=== PATIENT | male | born 1955 | race Caucasian/White ===

== ENCOUNTER 2023-05-19 05:57 | Day surgery (SDC) | payer OTHER, SELFPAY ==
[2023-05-19] VITALS (11 sets, daily range): BP systolic 144–195; BP diastolic 75–94; BMI 37.7
[2023-05-19] MEDS: BACTROBAN NASAL 1 GRAM NASAL (06:50)
[2023-05-19] MEDS: NSS 500 IV (06:50)
[2023-05-19] MEDS: PERIDEX 0.12% ORAL RINSE 15 ML PO (06:50)
[2023-05-19 07:02] LABS: Hematocrit 23.6 % (39.0-52.0); Hemoglobin 7.8 g/dL (13.0-18.0); Mean Corp Hgb Conc. 33.1 g/dL (33.0-37.0); Mean Corpuscular Volume 84.6 fL (80.0-94.0); Mean Platelet Volume 10.7 fL (7.4-10.4); Platelet Count 142 10^3/uL (130-400); Red Blood Cell Count 2.79 10^6/uL (4.70-6.10); Red Cell Dist. Width 14.7 % (11.5-14.5); White Blood Cell Count 6.7 10^3/uL (4.8-10.8)
[2023-05-19 07:12] LABS: APTT 27.4 Sec (23.4-35.0); INR 1.04; PT 13.8 Sec (11.4-14.6)
--- NOTE | 2023-05-19 07:13 | W.SUR.PREOP ---
Pre-Operative Surgical Note
-
I have examined this patient prior to the performance of the scheduled procedure.
The patient's condition is unchanged from the time of the current History and
Physical and the patient is able to undergo the scheduled procedure.
Note hemoglobin is 7.8. Reviewed with patient - he notes chronic anemia.
[2023-05-19 07:29] LABS: Blood Urea Nitrogen 79 mg/dl (9-20); Calcium 9.9 mg/dl (8.4-10.2); Carbon Dioxide 27 mmol/L (22-30); Chloride 94 mmol/L (98-107); Estimated Creatinine Clearance 18 ml/min; Glucose 110 mg/dl (70-99); Potassium 4.1 mmol/L (3.5-5.1); Sodium 132 mmol/L (135-145); eGFR 11.08
--- NOTE | 2023-05-19 08:54 | OR.RPT ---
Operative Report
Operative Report
PROCEDURE DATE: 05/19/2023
Preoperative diagnosis: End-stage renal disease, approaching hemodialysis
Postoperative diagnosis: Same
Procedure: Left upper extremity brachiocephalic arteriovenous fistula creation
Surgeon: Conner
Hvac Services Professional: Andrew Rajan PA-C, required for all portions of the procedure.
Complications: None
Anesthesia: General
Indications for procedure:
Chronic kidney disease worsening, approaching hemodialysis. Asked to evaluate for AV fistula creation. Risk/benefits/alternatives of arteriovenous fistula creation discussed with patient. He understood all wish to proceed.
Description of procedure:
Patient was identified brought to the operating room placed on the table in supine position. After the induction of anesthesia, I ultrasound mapped the cephalic vein in the left upper arm myself. It looked reasonable. After the adequate
administration of anesthesia and perioperative antibiotics he was prepped and draped in the standard surgical fashion. A standard preoperative timeout was undertaken and everybody was in agreement the plan. A transverse incision was made in the
proximal volar aspect of the forearm just distal to the antecubital fossa. This was carried through skin subcutaneous tissue. The antecubital extension of the cephalic vein was identified and carefully dissected away from surrounding structures
and great care to avoid any injury to structures. Any branches were ligated between silk ties and then divided. As such I was able to mobilize a suitable length of cephalic vein. Once I hd done this, I then deepened my dissection in the medial
aspect of the incision site through the fascial layer. The brachial artery was carefully identified and carefully dissected away from surrounding structures taking great care to avoid injury to structures. I passed a vessel loop around
approximately. Distally I identified the brachial bifurcation and both radial and ulnar branches were controlled with Vesseloops after careful circumferential dissection. Next I gave the patient 3000 units of intravenous heparin. I then ligated
the cephalic vein distally in my field with a silk tie and a clip. I then transected it. I distended under heparinized saline. It distended very well. I marked the anterior surface under distention to avoid any kinking or twisting. The vein was
suitable size but just to be sure I ran a 2.5mm and then 3 mm dilator through which passed without any difficulty whatsoever. Next I tightened my double looped Vesseloops on the artery proximally and distally. I then made an arteriotomy on the
distal brachial artery with an 11 blade extended using a William scissor. I spatulated the cephalic vein and sewed an end to side anastomosis using a running 6-0 Prolene suture. Prior to completing and tying down my suture line I backbled and
forebled the [place] artery. Next I released my bulldog clamp on the vein and then released my proximal vesseloop on the brachial artery, and then lastly released my distal vessel loop. There was an excellent thrill in the fistula. There was a 2+
palpable pulse at the wrist in the radial artery. Doppler confirmed excellent flow in all these vessels alos. At this point I was very satisfied. I irrigated. I achieved and confirmed full hemostasis. We then closed in layers using 3-0 Vicryl
deep dermal layer followed by 4-0 Monocryl subcuticular stitch. Dermabond was applied. The patient tolerated the procedure well.
[2023-05-19] MEDS: DILAUDID 0.5 MG IV (09:27)
== END 2023-05-19 11:20 | disposition home or self-care (01) ==
LOC: CATH 05:57
PROVIDERS: ATTENDING PHYSICIAN Surgery Vascular Surgery; FAMILY PHYSICIAN Family Medicine
DX: I12.0 Hypertensive chronic kidney disease with stage 5 chronic kidney disease or end stage renal disease (principal); N18.5 Chronic kidney disease, stage 5; Z87.891 Personal history of nicotine dependence
CPT/HCPCS: 36821; 80048; 85027; 85610; 85730; 86850; 86900; 86901

== ENCOUNTER → 2023-06-02 13:14 | Outpatient (REF) | payer OTHER, SELFPAY | LOC: RAD 13:14 | PROVIDERS: ATTENDING PHYSICIAN Physician Assistant | DX: J44.9 Chronic obstructive pulmonary disease, unspecified (principal) | CPT/HCPCS: 71046 ==

== ENCOUNTER → 2023-09-20 10:54 | Outpatient (REF) | payer OTHER, SELFPAY | LOC: RAD 10:54 | PROVIDERS: ATTENDING PHYSICIAN Physician Assistant; FAMILY PHYSICIAN Physician Assistant | DX: I77.0 Arteriovenous fistula, acquired (principal) | CPT/HCPCS: 93990 ==

== ENCOUNTER 2024-10-24 11:05 | Emergency (ER) | payer OTHER, SELFPAY ==
[2024-10-24 11:09] VITALS: BP 170/112
[2024-10-24 11:12] VITALS: BP 170/112
[2024-10-24 11:43] LABS: % Basophils 0.3 % (0-2); % Eosinophils 0.8 % (0-6); % Immature Granulocytes 1.5 % (0-0.5); % Lymphocytes 10.7 % (20.5-51.1); % Monocytes 8.1 % (1.7-9.3); % Neutrophils 78.6 % (42.2-75.2); Absolute Eosinophils 0.1 10^3/uL (0-0.7); Absolute Immature Granulocytes 0.1 10^3/uL (0-0.05); Absolute Lymphocytes 0.8 10^3/uL (1.2-3.4); Absolute Monocytes 0.6 10^3/uL (0.1-0.6); Absolute Neutrophils 5.6 10^3/uL (1.4-6.5); Hematocrit 34.3 % (39.0-52.0); Hemoglobin 11.5 g/dL (13.0-18.0); Mean Corp Hgb Conc. 33.5 g/dL (33.0-37.0); Mean Corpuscular Hgb 32.4 pg (27.0-31.0); Mean Corpuscular Volume 96.6 fL (80.0-94.0); Mean Platelet Volume 10.8 fL (7.4-10.4); Nucleated Red Blood Cells % 0.3 % (-); Platelet Count 112 10^3/uL (130-400); Red Blood Cell Count 3.55 10^6/uL (4.70-6.10); Red Cell Dist. Width 16.6 % (11.5-14.5); White Blood Cell Count 7.1 10^3/uL (4.8-10.8)
[2024-10-24 11:53] LABS: ALT (SGPT) 19 U/L (0-50); AST (SGOT) 22 U/L (17-59); Alkaline Phosphatase 80 U/L (38-126); Blood Urea Nitrogen 38 mg/dl (9-20); Calcium 9.3 mg/dl (8.4-10.2); Chloride 89 mmol/L (98-107); Estimated Creatinine Clearance 16 ml/min; Glucose 119 mg/dl (70-99); Potassium 4.9 mmol/L (3.5-5.1); Sodium 139 mmol/L (135-145); Total Bilirubin 0.4 mg/dl (0.2-1.3); Total Protein 6.5 g/dl (6.3-8.2); eGFR 10.03
--- NOTE | 2024-10-24 11:56 | ED.GENMED ---
History of Present Illness
General
Chief Complaint: Breathing Problem
Time Seen by Provider: 10/24/24 11:11
History of Present Illness
History of Present Illness:
69-year-old male with with history of end-stage renal disease on dialysis with left upper extremity fistula, COPD on 4 L of oxygen as needed, hypertension presenting to the emergency department for shortness of breath. Patient reports prior to
arrival he was getting into his car. He was not wearing any oxygen. It was very hot outside. Patient got into his car and started to feel a acutely short of breath. Ambulance was called. Patient notes today she started to feel better. He had
dialysis yesterday, notes typical treatment. Denies any increased lower extremity swelling. Denies chest pain. Does report that he has been having a cough as of recent, was on a Z-Rohan last week as well as steroids. Denies any abdominal pain or
GI symptoms. Denies additional acute medical complaints.
Past History
Past History
ED Past Medical History: Cancer (Prostates [place]), HTN, Hypercholesterolemia, Renal failure and Other (Renal insufficiency)
ED Past Surgical History: Orthopedic and Other (Hemorrhoid)
Social History
Tobacco: Former smoker
Alcohol: None
Drug: None
Personal:
Living: with family
Family History
Family History: Negative Early CAD
Phy Exam
Physical Exam
Physical Exam:
General: Well-appearing, no clinical signs of dehydration, nontoxic and in no acute distress
HEENT: protecting airway
Neck: appears supple
CV: Normal heart rate, regular rhythm
Resp: No accessory muscle use, no increased work of breathing, scant crackles at the bases
Abd: No distention
Extremities: No deformities, 1+ pitting edema bilaterally
Neuro: alert, no focal neurologic deficit
: deferred
Rectal: deferred
Psych: Normal affect
Skin: Intact
Scores
Heart Failure Risk
Heart Failure Risk Score: Not Applicable
Course
Orders/Labs/Results
Orders:
Orders
10/24/24 11:08
Electrocardiogram (*1) Urgent
Reason for Study: Other
Other Reason for Exam: Respiratory Distress
Cardiac Monitoring- Treatment ONCE
EKG- Treatment ONCE
IV Insert/Care/Rem.- Treatment PRN
CR Chest - 2 Views Urgent
Comment:
Reason For Exam: respiratory distress
O2 Therapy [RESP] Urgent
Titrate/Wean O2 to maintain O2 sat greater than (%): 93
Special Instructions: TO MAINTAIN CONTINUOUS O2 SATS >/= 93%
Pulse Ox/cont/shift [RESP] Urgent
Quantity: 1
Special Instructions: continuous pulse ox
10/24/24 11:25
Complete Blood Count/With Diff Urgent
Comprehensive Metabolic Panel Urgent
NT-proBNP Urgent
Troponin I Urgent
Abnormal Lab Results
10/24/24
11:25
RBC 3.55 L 10^6/uL
(4.70-6.10)
Hgb 11.5 L g/dL
(13.0-18.0)
Hct 34.3 L %
(39.0-52.0)
MCV 96.6 H fL
(80.0-94.0)
MCH 32.4 H pg
(27.0-31.0)
RDW 16.6 H %
(11.5-14.5)
Plt Count 112 L 10^3/uL
(130-400)
MPV 10.8 H fL
(7.4-10.4)
Abs Immat Gran (auto) 0.1 H 10^3/uL
(0-0.05)
Absolute Lymphs (auto) 0.8 L 10^3/uL
(1.2-3.4)
Immature Gran % 1.5 H %
(0-0.5)
Neutrophils % 78.6 H %
(42.2-75.2)
Lymphocytes % 10.7 L %
(20.5-51.1)
Chloride 89 L mmol/L
(98-107)
Carbon Dioxide 39 H mmol/L
(22-30)
BUN 38 H mg/dl
(9-20)
Creatinine 5.7 H* mg/dL
(0.7-1.3)
Glucose 119 H mg/dl
(70-99)
10/24/24 11:25
10/24/24 11:25
Vital Signs
Initial and Last Documented VS:
Initial Vital Signs
Temp Pulse Resp BP Pulse Ox
98.4 F 94 20 170/112 92
10/24/24 11:09 10/24/24 11:09 10/24/24 11:09 10/24/24 11:09 10/24/24 11:09
Last Documented Vital Signs
Temp Pulse Resp BP Pulse Ox
98.4 F 82 17 171/86 96
10/24/24 11:09 10/24/24 14:15 10/24/24 14:15 10/24/24 14:00 10/24/24 14:15
MDM/Problems Addressed
MDM/Problems Addressed:
69-year-old male with with history of end-stage renal disease on dialysis with left upper extremity fistula, COPD on 4 L of oxygen as needed, hypertension presenting for episode of shortness of breath.
On exam patient is resting comfortably, no acute distress, patient on nasal cannula. Scant crackles at the bases. Patient did have dialysis yesterday, however does sound like he may have increased volume on exam. Will obtain chest x-ray imaging.
No wheezing, with lower suspicion for COPD component. Patient does note that he has had a persistent cough, with pneumonia being a consideration. He is afebrile, nontoxic. EKG obtained, without significant change from prior. No report of chest
pain or concern for ACS. Do suspect that patient's underlying pulmonary disease with concomitant heat from outside (current temp 100 degrees), may have also contributed to patient's symptoms. Will continue to monitor from a respiratory standpoint
14:10 -patient's chest x-ray does show slight volume overload with right-sided pleural effusion, elevated BNP. Patient reports that he is feeling completely better with prefer to go home. He notes that he uses oxygen as needed and will go to
dialysis tomorrow. Feel this is reasonable, given hemodynamic stability, normal O2 saturation off of oxygen. Advised that he stay out of the heat. Strict return precautions communicated to patient verbalized understanding
*Pulse Oximetry
SaO2: 97
Nasal Cannula flow liters per minute: 4
Patient hypoxic: no
*EKG
Interpreted by ED Provider?: Yes
EKG Intrepretation Date: 10/24/24
EKG Intrepretation Time: 12:03
Interpretation: abnormal
Comparison EKG: no changes
Heart Rate: 94
Rate: normal
Rhythm: sinus
Holliday: left axis deviation
Interval: normal MS interval
QRS Pattern: left vent hypertrophy
Ischemia: non-specific ST changes
*Critical Care Note
Total Time (30-74mins, 75-104mins- exclusive of procedures): Not Applicable
ED Attending Note
-
Portions of this chart may have been created with voice recognition software.� Occasional wrong word or��sound alike� substitutions may have occurred due to the inherent limitations of voice recognition software.
Discharge Plan
Departure
Patient Disposition: Home (Routine Discharge)
Date of Disposition: 10/24/24
Time of Disposition: 14:18
Patient with high blood pressure during this ER visit?: Yes
Condition: Good
Discharge Problem:
Essential (primary) hypertension, Shortness of breath
Instructions: BLOOD PRESSURE
Prescriptions:
No Action
clonazepam 2 mg Tablet
2.5 mg PO DAILYPRN PRN (Reason: anxiety)
lamotrigine 200 mg tablet
200 mg PO DAILY
albuterol sulfate 90 mcg/actuation HFA aerosol inhaler
1 puff INHALATION R Q4HPRN PRN (Reason: sob)
carvedilol 12.5 mg Tablet
6.25 mg PO BID
allopurinol 100 mg Tablet
100 mg PO BID
colchicine 0.6 mg Tablet
0.6 mg PO Q48H
Repatha SureClick 140 mg/mL Pen Injector
140 mg SC Q2W
Patient Comments:
04/08/2023, patient states that their next dose is on Wednesday (04/09/2023).
acetaminophen 325 mg tablet
1,500 mg PO Q6HPRN PRN (Reason: mild pain)
oxybutynin chloride 10 mg Tablet Extended Release 24hr
10 mg PO DAILY
therapeutic multivitamin Tablet
1 tab PO QPM
calcium carbonate 500 mg calcium (1,250 mg) Tablet
500 mg PO QPM
ferrous sulfate 325 mg (65 mg iron) Tablet
325 mg PO DAILY
cholecalciferol (vitamin D3) [Vitamin D3] 50 mcg (2,000 unit) Tablet
50 mcg PO QPM
metolazone 2.5 mg Tablet
2.5 mg PO DAILYPRN PRN (Reason: edema)
atomoxetine 80 mg Capsule
80 mg PO DAILY Qty: 0 0RF
quetiapine 200 mg Tablet
400 mg PO HS
prednisone 10 mg Tablet
10 mg PO DIRECTED
Rx Instructions:
take 30mg daily for 4 days then 20mg daily for 4 days then 10mg daily for 4 dasy then stop for total of 12 days start 10/10/24
nicotine 21 mg/24 hr Patch 24 Hour
1 patch TRANSDERMAL DAILY
montelukast [Singulair] 10 mg Tablet
10 mg PO DAILY
furosemide [Lasix] 20 mg Tablet
20 mg PO BID
tadalafil 5 mg Tablet
5 mg PO DAILY
Trelegy Ellipta 100-62.5-25 mcg Blister With Device
1 inh INHALATION R DAILY
polyethylene glycol 3350 [HealthyLax] 17 gram powder in packet
17 g PO Q48H
Referrals:
Alea Rosales PA [Family Provider, [facility]]
Activity Restrictions/Additional Instructions:
You were seen in the emergency department for shortness of breath
You were found to have increase in fluid in your lungs. You were suggested to stay in the hospital given your presenting symptoms and concern of increase in fluid. You preferred to go home with use of your oxygen at home and follow-up with
dialysis tomorrow.
Please also follow-up closely with your primary care physician.
Return to the emergency department for any worsening of your symptoms, or any development of chest pain, difficulty breathing, abdominal pain with persistent vomiting and inability to tolerate food or liquid by mouth (concern for dehydration),
weakness, headache or confusion, fever greater than 100.4, or any additional symptoms that are concerning to you.
Thank you for choosing [facility].
Interventions
Interventions:
*Risk Screen - Suicide Last Done: 10/24/24 11:09
*General Assessment Last Done: 10/24/24 11:09
*Neglect/Abuse Screening Last Done: 10/24/24 11:09
*ED- Fall Risk Assessment Last Done: 10/24/24 11:09
*ED COVID-19 Vaccine History Last Done: 10/24/24 11:09
*Nursing Disposition Last Done: 10/24/24 14:15
ED- Cardiac Assessment Last Done: 10/24/24 11:23
ED- Pulmonary Assessment Last Done: 10/24/24 11:23
Discharge Date and Time
Discharge Date/Time: 10/24/24 16:19
Print Language: CHILEAN
[2024-10-24 11:58] LABS: NT-proBNP 7180 pg/ml; Troponin I 0.023 ng/ml
[2024-10-24 12:07] LABS: Carbon Dioxide 39 mmol/L (22-30)
[2024-10-24 12:14] VITALS: BP 169/97
[2024-10-24 13:00] VITALS: BP 173/95
[2024-10-24 14:00] VITALS: BP 171/86
== END 2024-10-24 16:19 | disposition home or self-care (01) ==
LOC: EMR 11:05
PROVIDERS: EMERGENCY PHYSICIAN Student in an Organized Health Care Education/Training Program; FAMILY PHYSICIAN Physician Assistant
DX: R06.02 Shortness of breath (principal); R05.9 Cough, unspecified; R60.0 Localized edema; J90 Pleural effusion, not elsewhere classified; I12.0 Hypertensive chronic kidney disease with stage 5 chronic kidney disease or end stage renal disease; N18.6 End stage renal disease; J44.9 Chronic obstructive pulmonary disease, unspecified; E78.00 Pure hypercholesterolemia, unspecified; Z99.2 Dependence on renal dialysis; Z85.46 Personal history of malignant neoplasm of prostate; Z87.891 Personal history of nicotine dependence
CPT/HCPCS: 99285; 94760; 71046; 80053; 83880; 84484; 85025; 93005

== ENCOUNTER → 2024-12-14 10:03 | Outpatient (REF) | payer MEDICARE, OTHER, SELFPAY | LOC: RAD 10:03 | PROVIDERS: ATTENDING PHYSICIAN Nurse Practitioner Family; FAMILY PHYSICIAN Physician Assistant | DX: R05.3 Chronic cough (principal) | CPT/HCPCS: 71046 ==

== ENCOUNTER 2024-12-19 02:06 | Inpatient (IN) | payer OTHER, SELFPAY ==
[2024-12-18 19:42] VITALS: BP 136/84
[2024-12-18 20:10] LABS: Hematocrit 42.5 % (39.0-52.0); Hemoglobin 13.6 g/dL (13.0-18.0); Mean Corp Hgb Conc. 32.0 g/dL (33.0-37.0); Mean Corpuscular Volume 97.3 fL (80.0-94.0); Nucleated Red Blood Cells % 0 % (-); Platelet Count 130 10^3/uL (130-400); Red Cell Dist. Width 15.9 % (11.5-14.5)
[2024-12-18 20:22] LABS: ALT (SGPT) 23 U/L (0-50); AST (SGOT) 24 U/L (17-59); Albumin 4.9 g/dl (3.5-5.0); Alkaline Phosphatase 83 U/L (38-126); Blood Urea Nitrogen 31 mg/dl (9-20); Calcium 10.3 mg/dl (8.4-10.2); Carbon Dioxide 33 mmol/L (22-30); Chloride 96 mmol/L (98-107); Glucose 110 mg/dl (70-99); Potassium 4.7 mmol/L (3.5-5.1); Sodium 137 mmol/L (135-145); Total Protein 7.6 g/dl (6.3-8.2); eGFR 12.97
--- NOTE | 2024-12-18 23:05 | ED.GENMED ---
History of Present Illness
General
Chief Complaint: Breathing Problem
Source: patient
Exam Limitations: none
Time Seen by Provider: 12/18/24 23:00
Nursing documentation reviewed up to this point in time: agreed with
History of Present Illness
History of Present Illness:
Note:
CHIEF COMPLAINT(S)
The patient presents with persistent shortness of breath, cough, and concerns of antibiotic-resistant pneumonia.
HISTORY OF PRESENT ILLNESS
The patient is a 69-year-old male with a history of COPD, ESRD on dialysis, htn, hlp, depression, who has been experiencing persistent cough and shortness of breath. Patient was having worsening shortness of breath and started develop a cough so he
saw his director orange. The patient reports that a director orange, Dr. Ye, performed lab work last week as well as sputum culture which indicated antibiotic-resistant pneumonia. The cough is productive, with expectoration transitioning in color
from white to green, and currently black. The patient was previously hospitalized for pneumonia from the same organism from late May to mid-June at [facility]. He denies any recent fevers but reports having developed vomiting after
starting a new medication, semaglutide, one month ago. The patient is on dialysis three times a week (Wednesday, Wednesday, and Wednesday) for four and a half hours each session. He receives dialysis through a fistula in his left arm. The patient
mentioned he was advised to lose weight in preparation for a kidney transplant. He denies fevers or chills. He reports that he has had vomiting on and off. He denies chest pain. He denies abdominal pain.
PAST MEDICAL AND SURGICAL HISTORY
The patient is on regular dialysis, indicating a history of chronic kidney disease.
CHRONIC MEDICAL CONDITIONS SIGNIFICANTLY AFFECTING CARE
The patient is undergoing dialysis for end-stage renal disease.
SOCIAL DETERMINANTS AFFECTING HEALTH
The patient is focused on weight loss to be eligible for a kidney transplant, indicating potential life stress and the importance of medical compliance.
REVIEW OF SYSTEMS
- Respiratory: Shortness of breath, productive cough with sputum changing from white to green to black.
- Gastrointestinal: Vomiting linked to recent medication initiation.
- General: No fevers reported; recent weight loss effort noted.
PHYSICAL EXAM
General: Alert, no acute distress.
Skin: Warm, dry.
Head: Normocephalic, atraumatic.
Neck: Supple, trachea midline.
Eyes, Ears, Nose, Mouth, and Throat: Oral mucosa moist.
Cardiovascular: Normal peripheral perfusion, no edema. RRR no murmurs
Respiratory: Respirations are non-labored. Occasional rhonchi.
Gastrointestinal: Abdomen nondistended.
Back: Normal range of motion, normal alignment.
Musculoskeletal: Normal range of motion, normal strength.
Neurological: Alert and oriented to person, place, time, and situation, no focal neurological deficit observed.
Psychiatric: Cooperative, appropriate mood & affect.
PROBLEM LIST
Acute:
- Pneumonia with resistant organism
- Symptomatic vomiting linked to new medication
Chronic:
- End-stage renal disease on dialysis
PLAN
- Consider repeating the chest X-ray to assess for changes in pneumonia.
- Continue IV antibiotics as per pulmonology recommendations.
- Ensure access to [facility] results for up-to-date culture and sensitivity information.
DIFFERENTIAL DIAGNOSIS
The Differential Diagnosis includes, in no particular order and is not limited to:
- Pneumonia (bacterial, viral, fungal)
- Chronic Obstructive Pulmonary Disease exacerbation
- Pulmonary embolism
- Bronchitis
- Heart failure
- Gastroesophageal reflux disease
- Lung abscess
- Tuberculosis
- Lung cancer
- Aspiration pneumonia or pneumonitis
CHART REVIEW
MDM/DISPOSITION
69-year-old male with past medical history of chronic respiratory insufficiency with history of COPD on chronic supplemental oxygen presents emergency department today with concerns of increasing worsening shortness of breath and cough with black
sputum production. His director orange advised him to report to emergency department for IV antibiotics due to the results of his sputum culture. I personally reviewed results of sputum culture from [facility]. Results show methicillin-resistant staph
aureus as well as acinetobacter calcoaceticus With heavy growth of both organisms. Will plan to admit for IV antibiotics.
Did review repeat chest x-ray today, does not appear to be worsening or new changes. Labs reviewed, patient has no leukocytosis, does have stable chronic renal disease. Reviewed culture and sensitivity, acinetobacter susceptible to cefepime, MRSA
suspect to vanco patient has no known abx allergies.
Past History
Past History
ED Past Medical History: Cancer (Prostates CA), HTN, Hypercholesterolemia, Renal failure and Other (Renal insufficiency)
ED Past Surgical History: Orthopedic and Other (Hemorrhoid)
Social History
Tobacco: Former smoker
Alcohol: None
Drug: None
Personal:
Living: with family
Family History
Family History: Negative Early CAD
Review of Systems
Review of Systems
All Other Systems: ROS reviewed and negative except as documented in HPI and ROS
Phy Exam
Physical Exam
Physical Exam:
see hpi
Scores
Heart Failure Risk
Heart Failure Risk Score: Not Applicable
Course
Orders/Labs/Results
Orders:
Orders
12/18/24 19:48
Electrocardiogram (*1) Urgent
Reason for Study: Shortness of Breath
EKG- Treatment ONCE
12/18/24 19:55
Complete Blood Count/With Diff Urgent
Comprehensive Metabolic Panel Urgent
12/18/24 23:15
CR Chest - 2 Views Urgent
Comment:
Reason For Exam: cough
12/19/24 01:39
Admit/Transfer Patient As Directed
Co-Sign Provider:
Level of Care: Inpatient admission
Assign to:: Medical/Surgical
Physician / Group: Kamini
Diagnosis: pneumonia/bronchitis
Reason for Hospitalization: pneumonia
Expected length of stay greater than two midnights?: Yes
ELOS- Estimated Length of Stay in days: 2
I certify the patient meets the requirements for IP care: Yes
12/19/24 01:40
PRN Pain Medication Management As Directed
May give lesser potent ordered pain med per pt: Yes
preference::
Protocol:: Medication orders for pain may be administered in a
manner that supports deferring to patient preference
when the pt is:
- Requesting an ordered lesser potent pain medication.
Least to most potent pain medications are defined
as: acetaminophen < NSAID < tramadol < opioids
(morphine, oxycodone, hydromorphone).
- Requesting a lesser dose of the same medication IF
ORDERED.
- Requesting a less intrusive route of administration
if both routes are prescribed by the provider (PO <
IV).
12/19/24 01:42
Code Status As Directed
Resuscitation Status: Full Code
12/19/24 01:51
Vancomycin [Vancocin] 2,000 mg 0.9% Sodium Chloride 500 ml [Nss] 500 ml IV NOW
12/19/24 02:00
Cefepime HCl [Maxipime] 1,000 mg IV Q24H
12/19/24 03:26
Acetaminophen [Tylenol] 1,000 mg PO Q6HPRN PRN mild pain
Albuterol [ProAIR HFA INHALER] 1 puff INH R Q4HPRN PRN sob
Bisacodyl [Dulcolax] 10 mg RECTAL [id number] PRN
Clonazepam [Klonopin] 3 mg PO DAILYPRN PRN
Docusate W/Senna [Senokot-S] 1 tablet PO DAILYPRN PRN
Mag Hydrox/Al Hydrox/Simeth [Maalox] 15 ml PO QIDPRN PRN
Metolazone [Zaroxolyn] 2.5 mg PO DAILYPRN PRN edema
Ondansetron Injectable [Zofran] 4 mg IV Q6HPRN PRN
VANCOMYCIN Pharmacy to Dose [VANCOCIN Pharmacy to Dose] 1 each Pharmacy To Prepare [Call Pharmacy To Prepare] 0 ml IV PER PROTOCOL
12/19/24 03:26
Consult Notification Routine
Specialty to Notify: Infectious Disease
Consult Notification Routine
Specialty to Notify: Nephrology
INFECTIOUS DISEASE CONSULT Routine
Consulting Provider: Anusha Francis
Was physician already notified: No
Reason for consult: mrsa/acinetobacter +sputum culture+persistent cough/bronchitis.
NEPHROLOGY CONSULT Routine
Consulting Provider: Caleb Love
Was physician already notified: No
Reason for consult: ESRD HD M/W/F, here for infectious bronchitis on IV abx
Activity As Directed
Activity Level: Out of Bed-Early Mobility
Intake/ Output As Directed
Frequency: Per unit guidelines
Vital Signs As Directed
Frequency: Per unit guidelines
Weight As Directed
Frequency: Once
Comment: on admission
O2 Therapy [RESP] Routine
Nasal Cannula Liter Flow: 4 LPM
Titrate/Wean O2 to maintain O2 sat greater than (%): 93
Special Instructions: Wean as tolerated
Pulse Ox/cont/shift [RESP] Routine
Quantity: 1
Special Instructions: notify provider if SPO2 < 91%
DX Deep Vein Thrombosis Video Routine
12/19/24 Breakfast
Sodium, 4 Gram (KANDI)
At Your Request: Full Participation
Does patient need a safe tray?: No
12/19/24 08:00
Allopurinol [Zyloprim] 100 mg PO BID AT 0800,1700
Budesonide/Formoterol 80/4.5 [Symbicort 80/4.5 Mcg Inhaler] 2 puff INH R BID
Carvedilol [Coreg] 6.25 mg PO BID
Ferrous Sulfate [Feosol] 325 mg PO DAILY
Furosemide [Lasix] 20 mg PO BID
Heparin 5,000 units SC Q8
Lamotrigine [Lamictal] 200 mg PO DAILY
Magnesium Oxide 500 mg PO DAILY
Montelukast Sodium [Singulair] 10 mg PO DAILY
Oxybutynin Chloride [Ditropan] 5 mg PO BID
Polyethylene Glycol Powder [Miralax] 17 grams PO DAILY
Sevelamer Carbonate [Renvela] 2,400 mg PO TID @ 0800,1200,1700
atomoxetine See Dose Instructions PO DAILY
12/19/24 09:00
sucroferric oxyhydroxide [Velphoro] See Dose Instructions PO PC
12/19/24 18:00
Calcium Carbonate [Oscal Rigo 500] 500 mg PO QPM
Cholecalciferol (Vitamin D3) [VITAMIN D3 (cholecalciferol)] 50 mcg PO QPM
Multivitamin [Theragran] 1 tablet PO QPM
12/19/24 22:00
Quetiapine Fumarate [Seroquel] 400 mg PO HS
12/20/24 00:00
Cefepime HCl [Maxipime] 1,000 mg IV Q24H
Abnormal Lab Results
12/18/24
19:55
RBC 4.37 L 10^6/uL
(4.70-6.10)
MCV 97.3 H fL
(80.0-94.0)
MCH 31.1 H pg
(27.0-31.0)
MCHC 32.0 L g/dL
(33.0-37.0)
RDW 15.9 H %
(11.5-14.5)
MPV 10.9 H fL
(7.4-10.4)
Abs Immat Gran (auto) 0.1 H 10^3/uL
(0-0.05)
Absolute Lymphs (auto) 0.8 L 10^3/uL
(1.2-3.4)
Absolute Monos (auto) 0.8 H 10^3/uL
(0.1-0.6)
Immature Gran % 0.7 H %
(0-0.5)
Lymphocytes % 11.2 L %
(20.5-51.1)
Monocytes % 11.3 H %
(1.7-9.3)
Chloride 96 L mmol/L
(98-107)
Carbon Dioxide 33 H mmol/L
(22-30)
BUN 31 H mg/dl
(9-20)
Creatinine 4.6 H* mg/dL
(0.7-1.3)
Glucose 110 H mg/dl
(70-99)
Calcium 10.3 H mg/dl
(8.4-10.2)
12/18/24 19:55
12/18/24 19:55
Vital Signs
Initial and Last Documented VS:
Initial Vital Signs
Temp Pulse Resp BP Pulse Ox
98.3 F 96 22 136/84 100
12/18/24 19:42 12/18/24 19:42 12/18/24 19:42 12/18/24 19:42 12/18/24 19:42
Last Documented Vital Signs
Temp Pulse Resp BP Pulse Ox
98.3 F 86 18 160/80 97
12/18/24 19:42 12/19/24 04:00 12/19/24 04:00 12/19/24 04:00 12/19/24 04:00
*Pulse Oximetry
SaO2: 100
Nasal Cannula flow liters per minute: 4
Patient hypoxic: no
*Critical Care Note
Total Time (30-74mins, 75-104mins- exclusive of procedures): Not Applicable
ED Attending Note
-
Portions of this chart may have been created with voice recognition software.� Occasional wrong word or��sound alike� substitutions may have occurred due to the inherent limitations of voice recognition software.
Discharge Plan
Departure
Patient Disposition: Admit
Date of Disposition: 12/19/24
Time of Disposition: 00:19
Admit to: Med/Surg
Presentation/result/management discussed w/ accepting MD/DO: Hospitalist
Patient with high blood pressure during this ER visit?: Yes
Condition: Fair
Discharge Problem:
Pneumonia due to methicillin resistant Staphylococcus aureus (MRSA), Pneumonia due to Acinetobacter species
Interventions
Interventions:
*Risk Screen - Suicide Last Done: 12/18/24 19:48
*Neglect/Abuse Screening Last Done: 12/18/24 19:48
ED- Cardiac Assessment Last Done: 12/18/24 23:00
ED- Pulmonary Assessment Last Done: 12/18/24 23:00
[2024-12-19] VITALS (8 sets, daily range): BP systolic 98–161; BP diastolic 57–83; BMI 32.0; BMI 30.2
[2024-12-19] MEDS: MAXIPIME 1000 MG IV ×2 (00:38→23:22)
--- NOTE | 2024-12-19 01:16 | HPS.HSE ---
Family Physician
-
Family Physician: Alea Rosales
Chief Complaint
-
Cough
History of Present Illness
This is a 69-year-old male with past medical history significant for COPD on 3 to 4 L home O2, hypertension, hyperlipidemia, CHF with preserved EF, ESRD on HD Wednesday,, history of prostate cancer presenting to the emergency
department with ongoing cough and sent in by is food broker for positive growth on sputum culture with MRSA and Acetobacter.
Patient reported that he had a prior episode of productive cough that developed into pneumonia with MRSA and Acinetobacter last year. He has been doing well up until about 2 weeks ago when he reports a productive cough.
Patient reports productive cough transitioning from white to green and currently black sputum. He says he is short of breath but is not requiring more oxygen at baseline. He denies fevers or chills. Reports intermittent nausea vomiting (he has
been on semaglutide for weight loss for 1 month)
He had sputum cultures done 5 days ago which is now growing MRSA and Acinetobacter similar to prior cultures done at [facility] in May.
In the ED today he was afebrile, blood pressure was 136/80 with a pulse of 96 and satting 100 on his 3 L.
CBC was unremarkable, electrolytes were normal, BUN/creatinine were consistent with his dialysis.
Chest x-ray shows ongoing right basilar opacity with a fluid meniscus at the lateral lung base.
Medical History
Past Medical History
Past Medical History: Reports Other
Additional Past Medical History:
Paroxysmal Atrial Fibrillation
Essential Hypertension
Hyperlipidemia
CKD Stage 4
Anemia of Chronic Disease
Attention Deficit Disorder
Bipolar Disorder
Insomnia
Prostate Cancer
Past Surgical History: Reports Other
Additional Past Surgical History:
Spine Surgery
Hemorrhoid Surgery
Social History
Tobacco: Former Smoker
Alcohol: None
Drug: None
Family History
Family History: Not pertinent
Allergies / Home Medications
Allergies reflects when Allergies were last updated in [facility].
Home Medications with original date entered in [facility]
Allergy/Medication List:
Allergies
Allergy/AdvReac Type Severity Reaction Status Date / Time
No Known Allergies Allergy Verified 03/10/23 11:33
Home Medications
clonazepam 2 mg tablet 2 mg PO TIDPRN PRN anxiety 03/25/22
ezetimibe 10 mg tablet (Zetia) 10 mg PO DAILY High cholesterol 03/25/22
lamotrigine 200 mg tablet 200 mg PO DAILY Neurological Condition 03/25/22
albuterol sulfate 90 mcg/actuation aerosol inhaler 1 puff inhalation R Q4HPRN PRN sob 04/01/22
tadalafil 5 mg tablet 5 mg PO DAILY prostate issue 07/09/22
acetaminophen 325 mg tablet 650 mg PO Q6HPRN PRN mild pain 03/10/23
allopurinol 100 mg tablet 100 mg PO BID Gout 03/10/23
calcium carbonate 500 mg calcium (1,250 mg) tablet 500 mg PO QPM Supplement 03/10/23
carvedilol 12.5 mg tablet 12.5 mg PO BID Blood Pressure 03/10/23
cholecalciferol (vitamin D3) 50 mcg (2,000 unit) tablet (Vitamin D3) 50 mcg PO QPM Supplement 03/10/23
colchicine 0.6 mg tablet 0.6 mg PO Q48H Gout 03/10/23
evolocumab 140 mg/mL subcutaneous pen injector (Repatha SureClick) 140 mg SC Q2W High Cholesterol 03/10/23
ferrous sulfate 325 mg (65 mg iron) tablet 325 mg PO DAILY Supplement 03/10/23
mycophenolate sodium 360 mg tablet,delayed release 720 mg PO Q12H immunologic condition 03/10/23
oxybutynin chloride 10 mg tablet,extended release 24 hr 10 mg PO DAILY Urinary Issue 03/10/23
therapeutic multivitamin 1 tab PO QPM Supplement 03/10/23
zolpidem 12.5 mg tablet,extended release,multiphase 12.5 mg PO HS Sleep 03/10/23
Iron Infusion 1 dose SC MOTH 04/08/23
atomoxetine 80 mg capsule 80 mg PO DAILY 04/08/23
metolazone 2.5 mg tablet 2.5 mg PO DAILY PRN edema 04/08/23
quetiapine 100 mg tablet 100 mg PO HS 04/08/23
tadalafil 20 mg tablet 20 mg PO DAILY PRN prostate issue 04/08/23
tolvaptan 15 mg tablet 15 mg PO QPM 04/08/23
torsemide 20 mg tablet 20 mg PO BID Fluid Retention/Swelling 04/08/23
Review of Systems
-
Constitutional: Reports No Symptoms
EENT: Reports No Symptoms
Respiratory: Reports No Symptoms
Cardiac: Reports No Symptoms
Abdomen/GI: Reports No Symptoms
: Reports No Symptoms
Musculoskeletal: Reports No Symptoms
Skin: Reports No Symptoms
Neurological: Reports No Symptoms
Endocrine: Reports No Symptoms
Hematologic/Lymphatic: Reports No Symptoms
Psych: Reports No Symptoms
Physical Exam
Vital Signs
Vital Signs
Temp Pulse Resp BP Pulse Ox
98.3 F 96 22 136/84 100
12/18/24 19:42 12/18/24 19:42 12/18/24 19:42 12/18/24 19:42 12/18/24 23:07
Physical Exam
General: Well Developed, Well Nourished and No Apparent Distress
HEENT: NormoCephalic, Moist mucous membranes and Atraumatic
Respiratory: Clear
Cardiac: S1/S2 and Regular Rhythm; No Murmur or Rub
GI: Soft, Non Tender, Non Distended and Normal Bowel Sounds; No Organomegaly
Rectal: Deferred by Provider
Musculoskeletal: No Clubbing, No Cyanosis and No Edema
Skin: No Rash
Neuro: Nonfocal/grossly intact
Laboratory Results
-
12/18/24 19:55
12/18/24 19:55
Laboratory Results
Total Bilirubin 0.5 mg/dl (0.2-1.3) 12/18/24 19:55
AST 24 U/L (17-59) 12/18/24 19:55
ALT 23 U/L (0-50) 12/18/24 19:55
Alkaline Phosphatase 83 U/L (38-126) 12/18/24 19:55
Impression/Plan
-
IMPRESSION:
69-year-old male with history of COPD on 2 L on home O2, history of MRSA and Acinetobacter pneumonia in May who presents to the emergency department from pulmonary clinic for ongoing cough and found to have growth of MRSA and bacteria on the
sputum from 5 days ago. He is afebrile and hemodynamic stable. He is maintaining his baseline oxygenation. His chest x-ray shows shows a right lower lobe opacity that has been persistent.
PLAN:
1. Pneumonia/bronchitis - Acinetobacter + MRSA growth with worsening productive cough.
- admit to med/surg
- sputum cultures known
- start IV vancomycin/cefepime, may continue as outpatient after HD sessions
- continue supportive measures
- ID consultation
2. COPD - Currently cough 2/2 pna. Mild exacerbation
- continue ICS/LABA/LAMA
- prn albuterol/ipratoprium
- continue montelukast
- keep sat > 90%
3. ESRD
- HD M/W/F, consult nephrology tomorrow for HD wednesday
- continue his sevelamer
- continue furosemide 20 bid
4. CHF
- continue furosemide as above
- continue coreg
5. Bipolar
- continue atomexetine, lamotrigine, quetiapine and clonazepam prn
DVT PPX - heparin sq
Code status - Full Code
[2024-12-19] MEDS: VANCOCIN 540 MG IV (02:18)
[2024-12-19] MEDS: CITROMA 300 ML PO (05:24)
[2024-12-19] MEDS: MAGNESIUM OXIDE 500 MG PO (08:31)
[2024-12-19] MEDS: LAMICTAL 200 MG PO (08:32)
[2024-12-19] MEDS: DITROPAN 5 MG PO ×2 (08:32→20:03)
[2024-12-19] MEDS: SINGULAIR 10 MG PO (08:33)
[2024-12-19] MEDS: COREG 6.25 MG PO ×2 (08:33→20:03)
[2024-12-19] MEDS: LASIX 20 MG PO ×2 (08:33→20:03)
[2024-12-19] MEDS: FEOSOL 325 MG PO (08:33)
[2024-12-19] MEDS: ZYLOPRIM 100 MG PO ×2 (08:33→17:04)
[2024-12-19] MEDS: MIRALAX PO ×2 (08:34→13:55)
[2024-12-19] MEDS: HEPARIN 5000 UNITS SC ×3 (08:34→23:21)
[2024-12-19] MEDS: KLONOPIN 3 MG PO (08:43)
--- NOTE | 2024-12-19 09:00 | PHA.VAN.IN ---
Addendum entered and electronically signed by Jackie Benito Gui 12/19/24 09:20:
Agree with assessment and plan
Original Note:
Assessment
- Assessment
Renal Function: Patient has ESRD, on chronic Hemodialysis
Hemodialysis Schedule: MWF
Concomitant Antimicrobials: cefepime
Historical Micro: History of MRSA infection (culture data from [place] in May 2024, recent sputum cx from pulm clinic 5 days ago)
Plan
- Plan
Initial / Loading Dose: received 2000mg at 0218 this morning
Maintenance Regimen: dose by level
Monitoring: will get level pre-HD tomorrow at 0600
Pharmacokinetics Vancomycin I
- -
Patient Age: 69
Patient Sex: Male
Vancomycin Day #: 1
Indication: Pulmonary/Respiratory
Requesting Provider: Dr. Suárez
Pertinent Antimicrobial Allergies:
NKDA
Height / Weight:
Height 6 ft
Actual Weight 107 kg
Pertinent Past Medical History: ESRD on MWF HD, hx of MRSA/Acinetobacter pna
- Vital Signs / Lab Results
Temp Pulse Resp BP Pulse Ox
98.3 F 86 18 160/80 97
12/18/24 19:42 12/19/24 04:00 12/19/24 04:00 12/19/24 04:00 12/19/24 04:00
Lab Results - Hematology
12/18/24
19:55
WBC 7.2
Lab Results - Chemistry
12/18/24
19:55
BUN 31 H
Creatinine 4.6 H*
Albumin 4.9
[2024-12-19] MEDS: RENVELA 2400 MG PO ×3 (09:48→17:05)
[2024-12-19] MEDS: SYMBICORT 80/4.5 MCG INHALER INH ×2 (09:48→12:12)
--- NOTE | 2024-12-19 10:11 | W.CON.NEPH ---
Consultation
-
Date/Time Consultation Requested: December 18, 2024
Date/Time Consultation Performed: December 19, 2024 9 AM
Requesting Provider: Sarmad Suárez
Performing Provider: Dr. Love
Reason for Consultation: End-stage renal disease
Medical History
-
Chief Complaint: ESRD
History of Present Illness:
69-year-old male with past medical history significant for COPD on 3 to 4 L home O2, hypertension, hyperlipidemia, CHF with preserved EF, ESRD on HD Wednesday,, history of prostate cancer presenting to the emergency department with
ongoing cough and sent in by is quantitative associate for positive growth on sputum culture with MRSA and Acetobacter.
Patient reported that he had a prior episode of productive cough that developed into pneumonia with MRSA and Acinetobacter last year
Renal consult for end-stage renal disease
Dialysis Wednesday at [facility] follows with Dr. Mas. He has been on dialysis since March 2024 he has an AV fistula placed by Dr. Prieto
Past Medical History
COPD on 3 to 4 L home O2, hypertension, hyperlipidemia, CHF with preserved EF, ESRD on HD Wednesday,, history of prostate cancer
Social History
Tobacco: Non-Smoker
Alcohol: None
Family History
Family History: Not Pertinent
Allergies / Home Medications
Allergy/AdvReac Type Severity Reaction Status Date / Time
No Known Allergies Allergy Verified 12/18/24 19:46
�Medication �Instructions �Recorded �Confirmed �Type
clonazepam 2 mg tablet 2 mg PO HSPRN PRN anxiety 03/25/22 12/19/24 History
lamotrigine 200 mg tablet 200 mg PO DAILY Neurological 03/25/22 12/19/24 History
Condition
albuterol sulfate 90 mcg/actuation 1 puff inhalation R Q4HPRN PRN sob 04/01/22 12/19/24 History
aerosol inhaler
allopurinol 100 mg tablet 100 mg PO BID Gout 03/10/23 12/19/24 History
calcium carbonate 500 mg PO QPM Supplement 03/10/23 12/19/24 History
carvedilol 12.5 mg tablet 6.25 mg PO BID Blood Pressure 03/10/23 12/19/24 History
cholecalciferol (vitamin D3) 50 50 mcg PO QPM Supplement 03/10/23 12/19/24 History
mcg (2,000 unit) tablet (Vitamin
D3)
ferrous sulfate 325 mg (65 mg 325 mg PO DAILY Supplement 03/10/23 12/19/24 History
iron) tablet
oxybutynin chloride 10 mg 10 mg PO DAILY Urinary Issue 03/10/23 12/19/24 History
tablet,extended release 24 hr
therapeutic multivitamin 1 tab PO QPM Supplement 03/10/23 12/19/24 History
metolazone 2.5 mg tablet 2.5 mg PO DAILYPRN PRN edema 04/08/23 12/19/24 History
atomoxetine 80 mg capsule 80 mg PO DAILY ADD #0 caps 04/10/23 12/19/24 Rx
quetiapine 200 mg tablet 400 mg PO HS 04/29/23 12/19/24 History
fluticasone fur. 100 mcg-umeclid 1 inh inhalation R DAILY 10/24/24 12/19/24 History
62.5 mcg-vilant 25 mcg
inhalat.powder (Trelegy Ellipta)
furosemide 20 mg tablet (Lasix) 20 mg PO BID 10/24/24 12/19/24 History
montelukast 10 mg tablet 10 mg PO DAILY 10/24/24 12/19/24 History
(Singulair)
tadalafil 5 mg tablet 5 mg PO DAILY 10/24/24 12/19/24 History
magnesium oxide 400 mg PO DAILY 12/18/24 12/19/24 History
sevelamer HCl 800 mg tablet 2,400 mg PO AC 12/18/24 12/19/24 History
sucroferric oxyhydroxide 500 mg 1,000 mg PO PC 12/18/24 12/19/24 History
chewable tablet (Velphoro)
quetiapine 25 mg tablet (Seroquel) 25 mg PO Q6HPRN PRN agition 12/19/24 12/19/24 History
semaglutide (weight loss) 0.25 0.25 mg SC FR 12/19/24 12/19/24 History
mg/0.5 mL subcutaneous pen
injector (Wegovy)
Review of Systems
-
Cough
All other systems: Negative unless noted
Physical Exam
Vital Signs
Vital Signs
Temp Pulse Resp BP Pulse Ox
98.5 F 82 18 140/82 96
12/19/24 09:01 12/19/24 09:01 12/19/24 09:01 12/19/24 09:01 12/19/24 09:01
Lab Results
WBC 7.2 10^3/uL (4.8-10.8) 12/18/24 19:55
RBC 4.37 10^6/uL (4.70-6.10) L 12/18/24 19:55
Hgb 13.6 g/dL (13.0-18.0) 12/18/24 19:55
Hct 42.5 % (39.0-52.0) 12/18/24 19:55
Plt Count 130 10^3/uL (130-400) 12/18/24 19:55
Sodium 137 mmol/L (135-145) 12/18/24 19:55
Potassium 4.7 mmol/L (3.5-5.1) 12/18/24 19:55
Chloride 96 mmol/L (98-107) L 12/18/24 19:55
Carbon Dioxide 33 mmol/L (22-30) H 12/18/24 19:55
BUN 31 mg/dl (9-20) H 12/18/24 19:55
Creatinine 4.6 mg/dL (0.7-1.3) H* 12/18/24 19:55
eGFR 12.97 12/18/24 19:55
Glucose 110 mg/dl (70-99) H 12/18/24 19:55
Calcium 10.3 mg/dl (8.4-10.2) H 12/18/24 19:55
Albumin 4.9 g/dl (3.5-5.0) 12/18/24 19:55
Physical Exam
General no acute distress
HEENT no cephalic atraumatic extraocular muscle intact no scleral icterus no JVD neck supple
lungs coarse with fine crackles in the right
heart regular S1-S2 positive
abdomen soft nontender positive bowel sounds
extremities no edema pulses present bilateral
Neurologically nonfocal alert and oriented x 3
Skin no lesions no abrasions no petechiae
Psych normal affect no bizarre behavior
Data Reviewed
-
Radiology: Image Personally Visualized and interpreted
Labs: Labs Reviewed by me and Discussed with Patient
Assessment/Plan
-
69-year-old male with past medical history significant for COPD on 3 to 4 L home O2, hypertension, hyperlipidemia, CHF with preserved EF, ESRD on HD Wednesday,, history of prostate cancer presenting to the emergency department with
ongoing cough and sent in by is quantitative associate for positive growth on sputum culture with MRSA and Acetobacter.
Patient reported that he had a prior episode of productive cough that developed into pneumonia with MRSA and Acinetobacter last year
Renal consult for end-stage renal disease
Dialysis Wednesday at [facility] follows with Dr. Mas. He has been on dialysis since March 2024 he has an AV fistula placed by Dr. Prieto
Impression
ESRD
Pneumonia/bronchitis
COPD stable
CHF stable
Secondary hyperparathyroidism
Plan.
No acute need for dialysis today
Continue dialysis Wednesday/see orders
Estimated dry weight per patient 92.3 kg
Epogen as indicated for hemoglobin goal between 10 and 11
Sevelamer continue
Antibiotics per primary team renal dose for ESRD
--- NOTE | 2024-12-19 10:22 | W.PN.HOSP.TC ---
Today's Communication/Plan
-
cont Abx
Pulm and ID consult
Check ABG and continious pulse O2
Assessment / Plan
Assessment / Plan
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 Was already treated for the same last spring in [facility]
A/P:
#Pneumonia with Acinetobacter and MRSA
Vanco/Cefepime and tailor towards sensitivities - asked pulm to provide results of utpatient sawyer
ID consult
cont pulse O2,
check COVID-19 and influenza
Pulm consult: XR with right basilar opacity, with a fluid meniscus sign at the lateral lung base
#ESRD on HD
Nephro for HD
#Chronic hyponatremia
#Bipolar d/o
#Asthma, not in exacerbation
#Gout
#Essential HTN
#HX of Afib not on AC
#MARK
cont home meds
#minimal hypercalcemia
follow BMP
DVT ppx hep
Full code
I have spent at least 51min reviewing chart, test results, communication to consultants and providing direct patient care
Anticipated Discharge: > 48 hours
Subjective/Interval History
-
Date of Service: December 19, 2024
Objective Data
-
Vital Signs:
Vital Signs
Temp Pulse Resp BP Pulse Ox
98.5 F 82 18 140/82 96
12/19/24 09:01 12/19/24 09:01 12/19/24 09:01 12/19/24 09:01 12/19/24 09:01
Review of Systems
-
Unable to obtain full review of systems at this time due to: Other (somnolent)
History Source: Patient
Physical Exam
-
General: No Apparent Distress
HEENT: Normocephalic
Respiratory: Clear to Auscultation
GI: Soft, Nontender and Nondistended
Neuro: Awake and Sedated
Psych: Calm
--- NOTE | 2024-12-19 10:33 | PTCARENOTE ---
pt aaox3 and conversant pre admin of morning meds. pt now lethargic and responds to tactile stimuli. Pulm at bedside. Hospitalist made aware. pt placed on monitor. pt on 2lnc. vss.
[2024-12-19 10:35] LABS: COVID-19 Antigen Negative (Negative)
--- NOTE | 2024-12-19 10:37 | CON.PUL ---
Consultation
Consultation Request
Date/Time Consultation Requested: 12/19/2024-10 AM
Date/Time Consultation Performed: 12/19/2024-10:30 AM
Requesting Provider: Hospitalist
Performing Provider: Dr. Polanco
Reason for Consultation: Shortness of breath
Medical History
-
Chief Complaint: Shortness of breath
History of Present Illness:
69-year-old former smoking male with underlying oxygen dependent COPD followed by Dr. Ye, hypertension, hyperlipidemia, CHF, end-stage renal disease on dialysis as well as prostate cancer with increasing shortness of breath, sputum production
growing MRSA and Citrobacter and now admitted with pneumonia-pulmonary consulted for pneumonia 12/19/2024. Patient was seen in the emergency room, has some shortness of breath, some chest congestion, nonproductive cough, is very somnolent, easily
arousable and alert and oriented, recently received significant amount of Xanax-his usual dose and saturating well. No complaints of abdominal pain, focal weakness.
Past Medical History
Past Medical History: None (COPD-oxygen dependent. PAF. Hypertension. Hyperlipidemia. Chronic kidney disease on hemodialysis. Anemia. Attention deficit. Bipolar. Insomnia. Prostate cancer. Anxiety. Spine surgery. Hemorrhoid surgery.)
Social History
Tobacco: Former Smoker
Alcohol: None
Drug: None
Occupational Exposures: No known asbestos exposure
Environmental Exposures: no known tuberculosis exposure
Family History
Family History: Reviewed & Not Pertinent (. Father-CAD, throat cancer and Alzheimer's as well as COPD, mother-CAD)
Allergies / Home Medications
Allergies
Allergy/AdvReac Type Severity Reaction Status Date / Time
No Known Allergies Allergy Verified 12/18/24 19:46
Home Medications
�Medication �Instructions �Recorded �Confirmed �Last Taken �Type
clonazepam 2 mg tablet 2 mg PO HSPRN PRN anxiety 03/25/22 12/19/24 05/18/23 23:00 History
lamotrigine 200 mg tablet 200 mg PO DAILY Neurological 03/25/22 12/19/24 10/24/24 History
Condition
albuterol sulfate 90 mcg/actuation 1 puff inhalation R Q4HPRN PRN sob 04/01/22 12/19/24 05/19/23 06:00 History
aerosol inhaler
allopurinol 100 mg tablet 100 mg PO BID Gout 03/10/23 12/19/24 10/24/24 History
calcium carbonate 500 mg PO QPM Supplement 03/10/23 12/19/24 05/18/23 17:00 History
carvedilol 12.5 mg tablet 6.25 mg PO BID Blood Pressure 03/10/23 12/19/24 10/24/24 History
cholecalciferol (vitamin D3) 50 50 mcg PO QPM Supplement 03/10/23 12/19/24 05/18/23 19:00 History
mcg (2,000 unit) tablet (Vitamin
D3)
ferrous sulfate 325 mg (65 mg 325 mg PO DAILY Supplement 03/10/23 12/19/24 10/24/24 History
iron) tablet
oxybutynin chloride 10 mg 10 mg PO DAILY Urinary Issue 03/10/23 12/19/24 10/24/24 History
tablet,extended release 24 hr
therapeutic multivitamin 1 tab PO QPM Supplement 03/10/23 12/19/24 05/18/23 19:00 History
metolazone 2.5 mg tablet 2.5 mg PO DAILYPRN PRN edema 04/08/23 12/19/24 05/18/23 07:00 History
atomoxetine 80 mg capsule 80 mg PO DAILY ADD #0 caps 04/10/23 12/19/24 10/24/24 Rx
quetiapine 200 mg tablet 400 mg PO HS 04/29/23 12/19/24 05/18/23 23:00 History
fluticasone fur. 100 mcg-umeclid 1 inh inhalation R DAILY 10/24/24 12/19/24 10/24/24 History
62.5 mcg-vilant 25 mcg
inhalat.powder (Trelegy Ellipta)
furosemide 20 mg tablet (Lasix) 20 mg PO BID 10/24/24 12/19/24 10/24/24 History
montelukast 10 mg tablet 10 mg PO DAILY 10/24/24 12/19/24 10/24/24 History
(Singulair)
tadalafil 5 mg tablet 5 mg PO DAILY 10/24/24 12/19/24 10/24/24 History
magnesium oxide 400 mg PO DAILY 12/18/24 12/19/24 Unknown History
sevelamer HCl 800 mg tablet 2,400 mg PO AC 12/18/24 12/19/24 Unknown History
sucroferric oxyhydroxide 500 mg 1,000 mg PO PC 12/18/24 12/19/24 Unknown History
chewable tablet (Velphoro)
quetiapine 25 mg tablet (Seroquel) 25 mg PO Q6HPRN PRN agition 12/19/24 12/19/24 Unknown History
semaglutide (weight loss) 0.25 0.25 mg SC FR 12/19/24 12/19/24 Unknown History
mg/0.5 mL subcutaneous pen
injector (Wegovy)
Review of Systems
-
Unable to Obtain full review of systems at this time due to: Other ( per HPI)
Vitals / Labs / Diagnostic Testing
Vital Signs
Temp Pulse Resp BP Pulse Ox
98.5 F 82 18 140/82 96
12/19/24 09:01 12/19/24 09:01 12/19/24 09:01 12/19/24 09:01 12/19/24 09:01
Lab Data
12/18/24 19:55
12/18/24 19:55
Microbiology
12/19/24 10:04 Nasal Swab Influenza Types A & B (DORA) - Final
Negative for Influenza A & B, NAAT
Negative results must be combined with clinical observations
and patient history.
Nucleic Acid Amplification test (NAAT)performed on the
[email or web address] platform.
Diagnostic Testing:
Physical Exam
-
Exam:
Well-nourished and well-developed in no apparent distress
HEENT-atraumatic, normocephalic
Neck-supple, no JVD, no bruit
Heart-regular rate and rhythm-no murmurs, rubs or gallops
Chest with diminished breath sounds, prolonged expiratory time, rare crackles at the bases
Back without tenderness
Abdomen-soft, nontender, nondistended, no hepatosplenomegaly
Extremities-no cyanosis, clubbing, edema and good peripheral pulses
Integument-intact, no rashes, lesions or ecchymosis
Neurology-alert and oriented, nonfocal motor and sensory exam
Assessment
-
69-year-old former smoking male with underlying oxygen dependent COPD followed by Dr. Ye, hypertension, hyperlipidemia, CHF, end-stage renal disease on dialysis as well as prostate cancer with increasing shortness of breath, sputum production
growing MRSA and Citrobacter and now admitted with pneumonia-pulmonary consulted for pneumonia 12/19/2024.
Pneumonia-sputum growing Acetobacter and MRSA
COPD with mild acute exacerbation-chronic hypercapnia suspected with baseline PCO2 50-ABG 12/19/24--52/59/7.43
Hyperglycemia
Conditions present prior to admission:
COPD/Asthma-oxygen dependent-follows Dr. Ye
Former [id number]-ctoa-year
NEERAJ status post UP3 about 10 years ago-has been refusing additional workup since as ongoing NEERAJ suspected clinically
PAF.
Hypertension.
Hyperlipidemia.
Chronic kidney disease on hemodialysis.
Anemia.
Attention deficit.
Bipolar.
Insomnia.
Prostate cancer.
Anxiety. .
Gout.
Spine surgery. Hemorrhoid surgery. L4/L5, partial discectomy 1992. Left hand surgery as child. Tonsillectomy. 2006. Uvulopalatopharyngoplasty 1995. Fistula creation 05/2023
Plan
Respiratory decompensation in this patient with significant COPD/asthma overlap likely due to pneumonia-MRSA/ Acitobacter with mild COPD exacerbation.
Supplemental oxygen as needed.
ABG reviewed and summarized above-chronic hypercapnia and ongoing hypoxemia.
BiPAP if needed-suspect somnolence related to Xanax he received-easily arousable and oriented.
Symbicort continues.
Singulair continues
Nebulizers.
Aspiration precautions.
Mucus clearing devices.
Mucinex.
Follow radiographically
Check cultures.
Sputum culture in the outpatient setting noted-MRSA and the Citrobacter
Vanco/cefepime initiated
Infectious disease consultation pending.
DVT prophylaxis-on subcutaneous heparin
Nutrition
Early mobilization
Outpatient follow-up with Dr. Ye-Currently has appointment with Melinda ZAMORA on 12/26/24 at 10:[address] Ye on 02/15/25 at 10:30 AM
Diagnostic data:
Chest x-ray 10/12/2019-NAD
Chest x-ray 04/02/2022-bilateral interstitial type pneumonia
Chest x-ray 04/06/2022-progressed right lower lobe atelectasis
Chest x-ray 05/08/2022-small bilateral pleural effusions
Chest x-ray 06/02/2023-NAD
Chest x-ray 10/20/2024-small right pleural effusion, cannot entirely rule out mild right lower lobe pneumonia
Chest x-ray 12/14/2024-unchanged right basilar opacification consistent with small right pleural effusion
Echocardiogram 03/11/2023-EF 65-70%, no valvular disease
PFT 07/10/24-FEV1 1.3 L-39%, FVC 2.69 L-59%, TLC 62%, RV 58%, DLCO 50%, DLCO/VA 89%
Data Reviewed
-
PFT: Report reviewed by me
EKG: Report reviewed by me
Radiology: Image personally visualized and interpreted and Report reviewed by me
Medical Tests (Nuc Med, Echo etc): Report reviewed by me
Labs: Labs reviewed by me
Old Records: Reviewed
Total Time Spent with Patient (in minutes): 65
[2024-12-19 11:16] LABS: B.E. 8.7 mmol/L; HCO3 34.5 mmol/L (21-28); O2 Saturation % 90.9 % (94-98); PCO2 52 mmHg (35-48)
[2024-12-19 11:26] LABS: PO2 59 mmHg (83-108)
--- NOTE | 2024-12-19 11:40 | RESPNOTE ---
Respiratory: ABG done on Room Air, tolerated well.
--- NOTE | 2024-12-19 13:19 | CM ---
CM reviewed chart, pt was sleeping, I spoke to his Sherice over the phone. Pt and live in multistory home but stay on the one level side. No MIN.
Independent in ADLs, personal care and ambulation at baseline, no assistive devices. Wears home O2 3-4L supplied by [employer].
Gets hemodialysis MWF at [facility], uses [facility].
Hx [facility] last year after a 2 month stay at [facility], also hx VN, no hx SNF
confirms prescription coverage.
PCP: Alea Rosales
Pharmacy: [facility]
CM will continue to follow for any discharge planning needs.
[2024-12-19] MEDS: DUONEB 3 ML INH ×2 (14:33→17:41)
--- NOTE | 2024-12-19 15:05 | CON.ID ---
Consultation
-
Date/Time Consultation Requested: 12/19/2024 0326
Date/Time Consultation Performed: 12/19/2024 1445
Requesting Provider: Dr. Suárez
Performing Provider: Dr. Hernández
Reason for Consultation: Bronchitis
Chief Complaint / Past History
History of Present Illness
Rich Meraz is a 69-year-old man with a significant past medical history of ESRD�HD being evaluated regarding positive respiratory cultures, and suspected bronchitis. History is obtained from chart review, along with patient interview.
The patient reports that he recently has developed a cough with sputum. He notes he normally has shortness of breath, but it seemed to worsen over the past several weeks. He was in to see Pulmonary, and a recent sputum culture as indicated the
presence of an antibiotic resistant organism. Because of a change in sputum quality, he was sent to the hospital for further evaluation.
He admits to me that he continues to have a cough, although it is not more than usual. He denies any fevers or chills. He does note that his sputum which is normally white has turned to green. He reports the production of approximately 2
tablespoons of sputum per day.
Past History
Additional Past Medical History:
COPD
ESRD�HD
HTN
HLD
Depression
P A-fib
Anemia
Hx prostate send
Additional Past Surgical History:
LUE AV fistula
Spine surgery
Hemorrhoid surgery
Allergy History:
No Known Allergies Allergy (Verified 12/18/24 19:46)
Medications Reviewed: Yes
Current Antibiotics:
Vancomycin (dosing per pharmacy)
Cefepime 1 gm q.24 hours
Social History
Tobacco: Non-Smoker
Alcohol: None
Drug: None
Employment: Retired
Family History
Family History: Not Pertinent
Review of Systems
Vital Signs
Temp Pulse Resp BP Pulse Ox
97.6 F 60 16 161/78 100
08/19/25 14:00 12/19/24 14:37 12/19/24 14:37 12/19/24 14:00 12/19/24 14:37
Physical Exam
Physical Exam
Constitutional: No Acute Distress, Comfortable and Non-toxic
Eyes: No Conjunctival Hemorrhage and Sclera Anicteric
Oral: No Thrush and No Ulcers
Cardiovascular: Irregular Rate and S1/S2; Negative S3/S4
Pulmonary: Clear, Wheezes, Non Labored and Other (4 L nasal cannula in place); Negative Rales or Rhonchi
Gastrointestinal: Soft, Non Tender, Non Distended and Normal Bowel Sounds
Genito-Urinary: Negative Conner
Skin: Warm and Dry; Negative Rash or Jaundice
Neurological: Awake and Alert
Psychological: Calm
Lab / Diagnostic Study Results
12/18/24 19:55
12/18/24 19:55
Abs Immat Gran (auto) 0.1 10^3/uL (0-0.05) H 12/18/24 19:55
Absolute Neuts (auto) 5.3 10^3/uL (1.4-6.5) 12/18/24 19:55
Absolute Lymphs (auto) 0.8 10^3/uL (1.2-3.4) L 12/18/24 19:55
Absolute Monos (auto) 0.8 10^3/uL (0.1-0.6) H 12/18/24 19:55
Absolute Basos (auto) 0.1 10^3/uL (0-0.2) 12/18/24 19:55
Immature Gran % 0.7 % (0-0.5) H 12/18/24 19:55
Neutrophils % 73.6 % (42.2-75.2) 12/18/24 19:55
Lymphocytes % 11.2 % (20.5-51.1) L 12/18/24 19:55
Monocytes % 11.3 % (1.7-9.3) H 12/18/24 19:55
Eosinophils % 2.5 % (0-6) 12/18/24 19:55
Basophils % 0.7 % (0-2) 12/18/24 19:55
Microbiology Results
Micro:
12/19/24 10:04 Influenza Types A & B (DORA) - Final
Nasal Swab Negative for Influenza A & B, NAAT
Negative results must be combined with clinical observations
and patient history.
Nucleic Acid Amplification test (NAAT)performed on the
[email or web address] platform.
12/19/24 10:04 Blood Culture - Pending
Blood/Venous
12/19/24 10:04 Blood Culture - Pending
Blood/Venous
12/19/24 08:53 MRSA Screen - Pending
Nose
-- 12/07/2024 Sputum Culture --
Imaging:
12/18/2024 CXR (2 view): right pleural effusion noted. No significant infiltrates appreciated. (Film personally viewed.)
Assessment / Plan
Exacerbation of COPD
Mucopurulent bronchitis
- Cultures with Acinetobacter and MRSA
ESRD�HD
HTN
HLD
Depression
P A-fib
Anemia
Hx prostate send
Recommendations:
Continue with vancomycin and cefepime for present. Dosing has been adjusted for ESRD
Monitor sputum production.
Follow white count and temperature curve.
[2024-12-19] MEDS: THERAGRAN 1 TABLET PO (17:07)
[2024-12-19] MEDS: OSCAL CAL 500 500 MG PO (17:07)
[2024-12-19] MEDS: VITAMIN D3 (cholecalciferol) 50 MCG PO (17:08)
[2024-12-19] MEDS: SYMBICORT 80/4.5 MCG INHALER 2 PUFF INH (17:42)
--- NOTE | 2024-12-19 18:28 | PTCARENOTE ---
Received pt from ED, AAOx3, VSS, pt ambulated to bed with no assistance from ED stretcher. o2 in use, pt oriented to room, resting comfortably in bed with call verma at bedside.
[2024-12-19] MEDS: MUCINEX 1200 MG PO (19:58)
[2024-12-19] MEDS: SENOKOT-S 1 TABLET PO (20:03)
[2024-12-19] MEDS: NON-FORMULARY ITEM 5 MG PO (21:02)
[2024-12-19] MEDS: SEROQUEL 400 MG PO (23:19)
[2024-12-19] MEDS: STERILE WATER FOR INJECTION 10 ML IV (23:22)
--- NOTE | 2024-12-20 02:52 | DOWNTIME ---
There was a [employer] Consultant Downtime on 12/20/2024 from 0100 to 12/20/2024 at 0235. Downtime documentation of patient's care, including medication administrations, has been reconciled in the electronic record per guidelines. Refer to the
patient's paper chart under the miscellaneous tab to see printed paper medication records and downtime forms.
[2024-12-20 07:19] LABS: Hematocrit 37.6 % (39.0-52.0); Hemoglobin 12.2 g/dL (13.0-18.0); Mean Corp Hgb Conc. 32.4 g/dL (33.0-37.0); Mean Corpuscular Volume 97.2 fL (80.0-94.0); Nucleated Red Blood Cells % 0 % (-); Platelet Count 103 10^3/uL (130-400); Red Cell Dist. Width 15.8 % (11.5-14.5)
[2024-12-20 07:26] VITALS: BP 131/78
[2024-12-20] MEDS: SYMBICORT 80/4.5 MCG INHALER 2 PUFF INH ×2 (07:31→17:59)
[2024-12-20] MEDS: DUONEB 3 ML INH ×3 (07:31→17:59)
[2024-12-20 07:51] LABS: ALT (SGPT) 21 U/L (0-50); AST (SGOT) 18 U/L (17-59); Albumin 4.1 g/dl (3.5-5.0); Alkaline Phosphatase 86 U/L (38-126); Blood Urea Nitrogen 55 mg/dl (9-20); Calcium 10.9 mg/dl (8.4-10.2); Carbon Dioxide 28 mmol/L (22-30); Chloride 97 mmol/L (98-107); Estimated Creatinine Clearance 12 ml/min; Glucose 86 mg/dl (70-99); Potassium 5.7 mmol/L (3.5-5.1); Sodium 133 mmol/L (135-145); Total Protein 6.5 g/dl (6.3-8.2); eGFR 7.58
--- NOTE | 2024-12-20 08:10 | W.PN.HOSP.TC ---
Today's Communication/Plan
-
cont Abx
HD today
Assessment / Plan
Assessment / Plan
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 Was already treated for the same in 2023 in [facility]
A/P:
#Pneumonia with Acinetobacter and MRSA
ID consult: MRSA - Vanco, Acinetobacter sensitive to Cefepime - cont
COVID-19 and influenza neg
Pulm consult: XR with right basilar opacity, with a fluid meniscus sign at the lateral lung base
#ESRD on HD MWF
Nephro for HD
#Mild hyperkalemia
correct with HD as per discussion with nephro
#Chronic hyponatremia
#Bipolar d/o
#Asthma, not in exacerbation
#Gout
#Essential HTN
#HX of Afib not on AC
#MARK
cont home meds
#Thrombocytopenia
suspect 2/2 Abx, follow CBC
4T score low - cont hep but check HIT Ab
#minimal hypercalcemia
follow BMP
correct with HD
DVT ppx hep
Full code
I have spent at least 51min reviewing chart, test results, communication to consultants and providing direct patient care
Anticipated Discharge: > 48 hours
Subjective/Interval History
-
Date of Service: December 20, 2024
Objective Data
-
Labs:
Laboratory Results
12/20/24
06:32
WBC 6.1
Hgb 12.2 L
Hct 37.6 L
Plt Count 103 L D
Sodium 133 L
Potassium 5.7 H
Chloride 97 L
Carbon Dioxide 28
BUN 55 H
Creatinine 7.2 H*
Glucose 86
Calcium 10.9 H
Total Bilirubin 0.7
AST 18
ALT 21
Alkaline Phosphatase 86
Vital Signs:
Vital Signs
Temp Pulse Resp BP Pulse Ox
97.6 F 70 16 131/78 96
12/20/24 07:26 12/20/24 07:34 12/20/24 07:34 12/20/24 07:26 12/20/24 07:34
I&O
12/19/24 12/20/24 12/21/24
06:59 06:59 06:59
Intake Total 840 / 840
Balance 840 / 840
Review of Systems
-
History Source: Patient
All other systems: Reviewed and negative
Respiratory: Reports Other (green sputum)
Physical Exam
-
General: Comfortable
HEENT: Normocephalic
Respiratory: Rales (L)
GI: Soft, Nontender and Nondistended
Musculoskeletal: No Clubbing, No Cyanosis and No Edema
Neuro: Awake, Alert, Oriented and AO x 3
Psych: Calm
[2024-12-20] MEDS: LAMICTAL 200 MG PO (08:19)
[2024-12-20] MEDS: MIRALAX 17 GRAMS PO (08:19)
[2024-12-20] MEDS: RENVELA 2400 MG PO ×2 (08:19→12:11)
[2024-12-20] MEDS: COREG 6.25 MG PO ×2 (08:20→22:30)
[2024-12-20] MEDS: FEOSOL 325 MG PO (08:20)
[2024-12-20] MEDS: SINGULAIR 10 MG PO (08:20)
[2024-12-20] MEDS: MUCINEX 1200 MG PO ×2 (08:20→22:32)
[2024-12-20] MEDS: DITROPAN 5 MG PO ×2 (08:20→22:25)
[2024-12-20] MEDS: HEPARIN 5000 UNITS SC (08:21)
[2024-12-20] MEDS: MAGNESIUM OXIDE 400 MG PO (08:21)
[2024-12-20] MEDS: LASIX 20 MG PO ×2 (08:21→22:25)
[2024-12-20] MEDS: NON-FORMULARY ITEM 5 MG PO (08:21)
[2024-12-20] MEDS: ZYLOPRIM 100 MG PO (08:21)
--- NOTE | 2024-12-20 08:37 | PHA.VAN.FU ---
Addendum entered and electronically signed by Jackie Benito Gui 12/20/24 09:20:
Agree with assessment and plan
Original Note:
Vancomycin Assessment / Plan
- Assessment
Hemodialysis Schedule: MWF
WBC's are: WNL
In the past 24 hrs, patient has been: Afebrile
- Assessment - Therapeutic Drug Monitoring
Random Level: 20.1 - drawn ~28.25H after 2000mg loading dose
- Dosing Plan
Dosing by Level: Re-dose today (give 500mg x1 dose post-HD today)
- Monitoring Plan
No level(s) ordered at this time: consider prior to next HD session
- Follow Up
Pharmacy will continue to follow.
Vancomycin Follow UP
- -
Patient Age: 69
Patient Sex: Male
Vancomycin Day #: 2
Indication: Pulmonary/Respiratory
Requesting Provider: Dr. Suárez
Pertinent Antimicrobial Allergies:
NKDA
Height / Weight:
Height 6 ft
Actual Weight 100.97 kg
Pertinent Past Medical History: ESRD on MWF HD, hx of MRSA/Acinetobacter pna
- Vital Signs / Lab Results
Temp Pulse Resp BP Pulse Ox
97.6 F 70 16 131/78 96
12/20/24 07:26 12/20/24 08:21 12/20/24 07:34 12/20/24 08:21 12/20/24 07:34
Lab Results - Hematology
12/18/24 12/20/24
19:55 06:32
WBC 7.2 6.1
Lab Results - Chemistry
12/18/24 12/20/24
19:55 06:32
BUN 31 H 55 H
Creatinine 4.6 H* 7.2 H*
Estimated Creat Clear 12
Albumin 4.9 4.1
Microbiology Results
12/19/24 10:04 Influenza Types A & B (DORA) - Final
Nasal Swab Negative for Influenza A & B, NAAT
Negative results must be combined with clinical observations
and patient history.
Nucleic Acid Amplification test (NAAT)performed on the
[employer] platform.
Therapeutic Drug Monitoring
Random Vancomycin 20.1 ug/ml 12/20/24 06:32
--- NOTE | 2024-12-20 10:24 | W.PN.PUL.V3 ---
Today's Communication / Plan
-
Adjust anxiolytics including Klonopin
Antibiotics
CT chest
Assessment
-
69-year-old former smoking male with underlying oxygen dependent COPD followed by Dr. Ye, hypertension, hyperlipidemia, CHF, end-stage renal disease on dialysis as well as prostate cancer with increasing shortness of breath, sputum production
growing MRSA and Citrobacter and now admitted with pneumonia-pulmonary consulted for pneumonia 12/19/2024.
Pneumonia-sputum growing Acetobacter and MRSA
COPD with mild acute exacerbation-chronic hypercapnia suspected with baseline PCO2 50-ABG 12/19/24--52/7.43
Hyperglycemia
Thrombocytopenia
Conditions present prior to admission:
COPD/Asthma-oxygen dependent-follows Dr. Ye
Former [id number]-year
NEERAJ status post UP3 about 10 years ago-has been refusing additional workup since as ongoing NEERAJ suspected clinically
PAF.
Hypertension.
Hyperlipidemia.
Chronic kidney disease on hemodialysis.
Anemia.
Attention deficit.
Bipolar.
Insomnia.
Prostate cancer.
Anxiety
Gout.
Spine surgery. Hemorrhoid surgery. L4/L5, partial discectomy 1992. Left hand surgery as child. Tonsillectomy. 2006. Uvulopalatopharyngoplasty 1995. Fistula creation 05/2023
Plan
Respiratory decompensation in this patient with significant COPD/asthma overlap likely due to pneumonia-MRSA/ Acitobacter with mild COPD exacerbation.
Supplemental oxygen as needed-attempt to wean-assess discharge supplemental oxygen needs
ABG reviewed and summarized above-chronic hypercapnia and ongoing hypoxemia.
BiPAP if needed-suspect somnolence related to Xanax he received-easily arousable and oriented.
Symbicort continues.
Singulair continues
Nebulizers.
Aspiration precautions.
Mucus clearing devices.
Mucinex.
Chest x-ray 12/18/2024-blunting right costophrenic angle-personally reviewed chest x-rays 12/14/2024 and 10/24/2024-persistent and chronic since 10/20/2024 blunting at the right costophrenic angle, however new since 06/02/2023 chest x-rays
Agree with checking CT chest to better define right pleural abnormality
Check cultures.
Sputum culture in the outpatient setting noted-MRSA and the Citrobacter
Influenza negative
Blood cultures negative
MRSA screen pending
Vanco/cefepime initiated
Infectious disease consultation noted and correspondence reviewed-continue vancomycin and cefepime for now
Anxiolytics including Klonopin currently being adjusted by primary team-less somnolent on lower doses of Klonopin
DVT prophylaxis-on subcutaneous heparin
Nutrition
Increase activity
Outpatient follow-up with Dr. Ye-Currently has appointment with Melinda ZAMORA on 12/26/24 at 10:[address] Ye on 02/15/25 at 10:30 AM
Diagnostic data:
Chest x-ray 10/12/2019-NAD
Chest x-ray 04/02/2022-bilateral interstitial type pneumonia
Chest x-ray 04/06/2022-progressed right lower lobe atelectasis
Chest x-ray 05/08/2022-small bilateral pleural effusions
Chest x-ray 06/02/2023-NAD
Chest x-ray 10/20/2024-small right pleural effusion, cannot entirely rule out mild right lower lobe pneumonia
Chest x-ray 12/14/2024-unchanged right basilar opacification consistent with small right pleural effusion
Echocardiogram 03/11/2023-EF 65-70%, no valvular disease
PFT 07/10/24-FEV1 1.3 L-39%, FVC 2.69 L-59%, TLC 62%, RV 58%, DLCO 50%, DLCO/VA 89%
Subjective Data
-
Date of Service:
Date of Service: December 20, 2024
Chief Complaint: Pulmonary Follow Up and Dyspnea Follow Up
Subjective:
Feels better, sleepy but arousable, oriented, no complaints of worsening shortness of breath has some chest congestion and productive cough, no chest pain or abdominal pain
Review of Systems
General: Other (Per HPI)
Objective Data
Data Reviewed
Vital Signs / I&O:
Vital Signs
Temp Pulse Resp BP Pulse Ox
97.6 F 70 16 131/78 95
12/20/24 07:26 12/20/24 08:21 12/20/24 07:34 12/20/24 08:21 12/20/24 08:00
Intake and Output
12/19/24 12/20/24 12/21/24
06:59 06:59 06:59
Intake Total 840 / 840
Balance 840 / 840
SaO2: 95
Nasal Cannula flow liters per minute: 3
Physical Exam
General: Respiratory Distress (n) and Comfortable
HEENT: Normocephalic, Anicteric and Moist Mucous Membranes
Cardiovascular: Regular Rhythm
Respiratory: Wheeze (Forced expiratory), Crackles (Rare basilar), Rhonchi (Few expiratory), Non-Labored Respirations and Accessory Resp Muscle Use (n)
GI: Soft, Non Distended and Non Tender
Neurology: Awake, Alert and No Motor Deficits
Skin: Warm, Good Color, Cyanosis (n), Jaundice (n) and Rash (n)
Labs/Micro/Reports
Lab Data
12/20/24 06:32
12/20/24 06:32
Laboratory Results
12/19/24
10:44
pH 7.43
pCO2 52 H
pO2 59 L*
HCO3 34.5 H
O2 Delivery Level Not Reportable
Microbiology
12/19/24 10:04 Blood/Venous Blood Culture - Preliminary
No Growth in 24 hours- Final report to follow
12/19/24 10:04 Blood/Venous Blood Culture - Preliminary
No Growth in 24 hours- Final report to follow
12/19/24 10:04 Nasal Swab Influenza Types A & B (DORA) - Final
Negative for Influenza A & B, NAAT
Negative results must be combined with clinical observations
and patient history.
Nucleic Acid Amplification test (NAAT)performed on the
[employer] platform.
[2024-12-20 10:56] VITALS: BMI 30.4
[2024-12-20 11:14] LABS: Folate 13.5 ng/ml (2.76-20); Vitamin B12 907 pg/ml (239-931)
--- NOTE | 2024-12-20 11:20 | PN.CDI ---
CDI
- -
CDI:
Physician Documentation Request
Admit Date: 12/19/24 02:06
Dear Pulmonary,
Please review the following and provide your response in the progress notes.
Clinical Indicators:
- 12/20 Pulmonary 'COPD with mild acute exacerbation-chronic hypercapnia suspected'
- 'COPD/Asthma-oxygen dependent'
- Documented VS 2-4L O2, pulse ox > 95%
Please clarify a diagnosis associated with being oxygen dependent:
Chronic hypoxic respiratory failure requiring continuous use home O2
Other (please specify)
Use of terms such as suspected, likely, concern for, or probable (associated with a specific diagnosis that is being evaluated, monitored, or treated as if it exists) are acceptable and can be coded in the inpatient setting, when documented at the
time of discharge.
Thank you,
Aaron Patel RN
CDI Specialist
Please use your independent medical judgment in providing your response.
[2024-12-20] MEDS: DUONEB INH (11:39)
--- NOTE | 2024-12-20 15:12 | CM ---
CM following re: discharge planning.
Reviewed pt's chart, met with pt.
Pert chart review, HD today, ID, pulmonology following, continue supportive care.
Pt lives with spouse in multistory home but stay on the one level side, no steps. .
Independent in ADLs, personal care and ambulation at baseline, no assistive devices. Wears home O2 3-4L supplied by [employer].
Gets hemodialysis MWF at [facility], (phone: [phone]; ), uses [facility].
PT and OT will evaluate the pt to determine a level of care at discharge.
D/C plan: most likely return back home with resumptions of HD treatment at [facility] and family support.
CM will follow with discharge plan updates as hospitalization progresses
--- NOTE | 2024-12-20 15:23 | W.PN.ID1 ---
Date of Service
Date of Service: December 20, 2024
Today's Communication
Continue current antibiotics.
Assessment / Plan
Exacerbation of COPD
Mucopurulent bronchitis
- Cultures with Acinetobacter calcoaceticus and MRSA
ESRD�HD
HTN
HLD
Depression
P A-fib
Anemia
Hx prostate send
Recommendations:
Continue with vancomycin (d#2) and cefepime (d#2) for present. Cefepime dosing has been adjusted for ESRD. Vancomycin dosing by levels.
Monitor sputum production.
Follow white count and temperature curve.
����������������������������������������������������������
Subjective / Review of Systems
Review of Systems: No Fever, No Chills, Cough and Sputum Production (Mild)
Vital Signs / Physical Exam
Vital Signs
Vital Signs
Temp Pulse Resp BP Pulse Ox
97.6 F 72 16 131/78 98
12/20/24 07:26 12/20/24 14:14 12/20/24 14:14 12/20/24 08:21 12/20/24 14:14
Physical Exam
Constitutional: No Acute Distress, Comfortable and Non-toxic
Cardiovascular: S1/S2; Negative S3/S4
Pulmonary: Wheezes and Non Labored; Negative Rales or Rhonchi
Gastrointestinal: Soft, Non Tender and Non Distended
Neurological: Awake and Alert
Psychological: Calm
Objective Data
Lab Data
Lab Results
12/20/24 06:32
12/20/24 06:32
Estimated Creat Clear 12 ml/min 12/20/24 06:32
Total Bilirubin 0.7 mg/dl (0.2-1.3) 12/20/24 06:32
AST 18 U/L (17-59) 12/20/24 06:32
ALT 21 U/L (0-50) 12/20/24 06:32
Alkaline Phosphatase 86 U/L (38-126) 12/20/24 06:32
Most recent labs reviewed.
Micro Results:
12/19/24 08:53 MRSA Screen - Final
Nose Staph aureus MRSA
12/19/24 10:04 Blood Culture - Preliminary
Blood/Venous No Growth in 24 hours- Final report to follow
12/19/24 10:04 Blood Culture - Preliminary
Blood/Venous No Growth in 24 hours- Final report to follow
12/19/24 10:04 Influenza Types A & B (DORA) - Final
Nasal Swab Negative for Influenza A & B, NAAT
Negative results must be combined with clinical observations
and patient history.
Nucleic Acid Amplification test (NAAT)performed on the
[employer] platform.
-- 12/07/2024 Sputum Culture --
Imaging:
12/20/2024 CT chest without contrast: scattered subpleural nodular opacities within the right lung measuring up to 1.6 cm in the lateral right middle lobe, which may be infectious or inflammatory in nature. Mild centrilobular emphysematous changes
with mild bibasilar atelectasis. No pleural effusion. No pneumothorax. Please see full dictation for additional detail.
12/18/2024 CXR (2 view): right pleural effusion noted. No significant infiltrates appreciated. (Film personally viewed.)
[2024-12-20 15:54] VITALS: BP 152/81
--- NOTE | 2024-12-20 16:47 | W.PN.NEPH.HD ---
Assessment
-
Patient seen on dialysis
Systolic blood pressure stable with current UF greater than 3 kg
HD via AV fistula
Progress Note - Hemodialysis
-
Date of Service: December 20, 2024
Duration: 30 minutes and 3 hours
Potassium Bath: 2
Calcium Bath: 2.5
Opti-Dialyzer: 160
Ultrafiltration: Other (3 to 4 kg as patient is significantly above dry weight (not correct as listed))
Blood Flow: 400
Dialysate Flow: 600
Heparin: 500
EPO: none
[2024-12-20] MEDS: HEPARIN SC ×2 (16:52→23:10)
[2024-12-20] MEDS: ZYLOPRIM PO (16:53)
[2024-12-20] MEDS: RENVELA PO (16:53)
[2024-12-20] MEDS: THERAGRAN PO (16:54)
[2024-12-20] MEDS: OSCAL CAL 500 PO (16:54)
[2024-12-20] MEDS: VITAMIN D3 (cholecalciferol) PO (16:57)
--- NOTE | 2024-12-20 17:21 | PTCARENOTE ---
Patient on HD now. scheduled ordered PM po Meds not given/hold per hd nurse. no s/s of distress noted. plan of care ongoing.
[2024-12-20] MEDS: HEPARIN 500 UNITS IV (17:45)
[2024-12-20] MEDS: VANCOCIN HCL 500 MG 100 IV (18:51)
[2024-12-20] MEDS: SEROQUEL 400 MG PO (23:10)
[2024-12-20] MEDS: STERILE WATER FOR INJECTION 10 ML IV (23:13)
[2024-12-20] MEDS: MAXIPIME 1000 MG IV (23:14)
[2024-12-20 23:30] VITALS: BP 119/71
[2024-12-21 05:28] VITALS: BMI 29.8
[2024-12-21 07:00] VITALS: BP 147/119
[2024-12-21 07:23] LABS: Hematocrit 36.5 % (39.0-52.0); Hemoglobin 11.9 g/dL (13.0-18.0); Mean Corp Hgb Conc. 32.6 g/dL (33.0-37.0); Mean Corpuscular Volume 95.8 fL (80.0-94.0); Nucleated Red Blood Cells % 0 % (-); Platelet Count 122 10^3/uL (130-400); Red Cell Dist. Width 15.8 % (11.5-14.5)
[2024-12-21] MEDS: SYMBICORT 80/4.5 MCG INHALER 2 PUFF INH ×2 (07:33→19:16)
[2024-12-21] MEDS: DUONEB 3 ML INH ×4 (07:33→19:16)
[2024-12-21 08:17] LABS: ALT (SGPT) 21 U/L (0-50); AST (SGOT) 18 U/L (17-59); Albumin 4.5 g/dl (3.5-5.0); Alkaline Phosphatase 93 U/L (38-126); Blood Urea Nitrogen 36 mg/dl (9-20); Calcium 10.0 mg/dl (8.4-10.2); Carbon Dioxide 30 mmol/L (22-30); Chloride 93 mmol/L (98-107); Estimated Creatinine Clearance 13 ml/min; Glucose 81 mg/dl (70-99); Potassium 5.1 mmol/L (3.5-5.1); Sodium 131 mmol/L (135-145); Total Protein 6.9 g/dl (6.3-8.2); eGFR 9.43
[2024-12-21] MEDS: FEOSOL 325 MG PO (08:27)
[2024-12-21] MEDS: MAGNESIUM OXIDE 400 MG PO (08:27)
[2024-12-21] MEDS: LASIX 20 MG PO ×2 (08:28→21:59)
[2024-12-21] MEDS: RENVELA 2400 MG PO ×3 (08:28→17:39)
[2024-12-21] MEDS: DITROPAN 5 MG PO ×2 (08:28→21:58)
[2024-12-21] MEDS: COREG 6.25 MG PO ×2 (08:29→21:47)
[2024-12-21] MEDS: MUCINEX 1200 MG PO ×2 (08:29→21:58)
[2024-12-21] MEDS: ZYLOPRIM 100 MG PO ×2 (08:29→17:40)
[2024-12-21] MEDS: LAMICTAL 200 MG PO (08:30)
[2024-12-21] MEDS: MIRALAX 17 GRAMS PO (08:30)
[2024-12-21] MEDS: SINGULAIR 10 MG PO (08:30)
[2024-12-21] MEDS: NON-FORMULARY ITEM 5 MG PO (08:31)
--- NOTE | 2024-12-21 08:40 | PHA.VAN.FU ---
Addendum entered and electronically signed by Jackie Benito [facility] 12/21/24 09:20:
Agree with assessment and plan
Original Note:
Vancomycin Assessment / Plan
- Assessment
Hemodialysis Schedule: MWF
WBC's are: WNL
In the past 24 hrs, patient has been: Afebrile
Concomitant Antimicrobials: cefepime
- Dosing Plan
Dosing by Level: Hold off on dosing today
- Monitoring Plan
Random Level: 12/22 599
- Follow Up
Pharmacy will continue to follow.
Vancomycin Follow UP
- -
Patient Age: 69
Patient Sex: Male
Vancomycin Day #: 3
Indication: Pulmonary/Respiratory
Requesting Provider: Dr. Suárez
Pertinent Antimicrobial Allergies:
NKDA
Height / Weight:
Height 6 ft
Actual Weight 99.654 kg
Pertinent Past Medical History: ESRD on MWF HD, hx of MRSA/Acinetobacter pna
- Vital Signs / Lab Results
Temp Pulse Resp BP Pulse Ox
97.5 F 78 16 147/119 97
12/21/24 07:00 12/21/24 07:35 12/21/24 07:35 12/21/24 07:00 12/21/24 07:35
Lab Results - Hematology
12/18/24 12/20/24 12/21/24
19:55 06:32 06:24
WBC 7.2 6.1 7.1
Lab Results - Chemistry
12/18/24 12/20/24 12/21/24
19:55 06:32 06:24
BUN 31 H 55 H 36 H
Creatinine 4.6 H* 7.2 H* 6.0 H*
Estimated Creat Clear 12 13
Albumin 4.9 4.1 4.5
Microbiology Results
12/19/24 08:53 MRSA Screen - Final
Nose Staph aureus MRSA
12/19/24 10:04 Blood Culture - Preliminary
Blood/Venous No Growth in 24 hours- Final report to follow
12/19/24 10:04 Blood Culture - Preliminary
Blood/Venous No Growth in 24 hours- Final report to follow
12/19/24 10:04 Influenza Types A & B (DORA) - Final
Nasal Swab Negative for Influenza A & B, NAAT
Negative results must be combined with clinical observations
and patient history.
Nucleic Acid Amplification test (NAAT)performed on the
[employer] platform.
Therapeutic Drug Monitoring
Random Vancomycin 20.1 ug/ml 12/20/24 06:32
--- NOTE | 2024-12-21 09:54 | W.PN.NEPH.PH ---
Today's Communication / Plan
-
Dialysis tomorrow
Assessment/Plan
-
69-year-old male with past medical history significant for COPD on 3 to 4 L home O2, hypertension, hyperlipidemia, CHF with preserved EF, ESRD on HD Wednesday,, history of prostate cancer presenting to the emergency department with
ongoing cough and sent in by is flavorings compounder for positive growth on sputum culture with MRSA and Acetobacter.
Patient reported that he had a prior episode of productive cough that developed into pneumonia with MRSA and Acinetobacter last year
Renal consult for end-stage renal disease
Dialysis Wednesday at [facility] follows with Dr. Mas. He has been on dialysis since March 2024 he has an AV fistula placed by Dr. Prieto
Impression
ESRD
Pneumonia/bronchitis/MRSA in sputum
COPD stable
CHF stable
Secondary hyperparathyroidism
Hyperphosphatemia
Plan.
Dialysis will be planned for tomorrow
Orders provide
Epogen as indicated for hemoglobin goal between 10 and 11
Sevelamer continue for hyperphosphatemia
Antibiotics per primary team renal dose for ESRD (vanco/cefipime)
-
-
Date of Service: December 21, 2024
CC / HPI / ROS
-
Chief Complaint:
ESRD
History of Present Illness:
Hemodynamically stable dry weight and on current antihypertensive
ESRD on Wednesday
Remains on antibiotic therapy for MRSA sputum and bronchitis
Review of Systems:
No shortness of breath
No chest pain
No fever
Labs
-
Labs:
WBC 7.1 10^3/uL (4.8-10.8) 12/21/24 06:24
RBC 3.81 10^6/uL (4.70-6.10) L 12/21/24 06:24
Hgb 11.9 g/dL (13.0-18.0) L 12/21/24 06:24
Hct 36.5 % (39.0-52.0) L 12/21/24 06:24
Plt Count 122 10^3/uL (130-400) L 12/21/24 06:24
Sodium 131 mmol/L (135-145) L 12/21/24 06:24
Potassium 5.1 mmol/L (3.5-5.1) 12/21/24 06:24
Chloride 93 mmol/L (98-107) L 12/21/24 06:24
Carbon Dioxide 30 mmol/L (22-30) 12/21/24 06:24
BUN 36 mg/dl (9-20) H 12/21/24 06:24
Creatinine 6.0 mg/dL (0.7-1.3) H* 12/21/24 06:24
eGFR 9.43 12/21/24 06:24
Glucose 81 mg/dl (70-99) 12/21/24 06:24
Calcium 10.0 mg/dl (8.4-10.2) 12/21/24 06:24
Albumin 4.5 g/dl (3.5-5.0) 12/21/24 06:24
Physical Exam
-
Vital Signs:
Vital Signs
Temp Pulse Resp BP Pulse Ox
97.5 F 78 16 147/119 97
12/21/24 07:00 12/21/24 07:35 12/21/24 07:35 12/21/24 07:00 12/21/24 07:35
Other Findings::
Does not appear acutely ill on exam
Vital signs reviewed with slight hypertension
No conversational dyspnea
No tremors
No edema
--- NOTE | 2024-12-21 10:19 | W.PN.PUL.V3 ---
Today's Communication / Plan
-
.
Antibiotics.
CT chest without empyema.
Outpatient follow-up CT chest.
Hemodialysis
Assessment
-
69-year-old former smoking male with underlying oxygen dependent COPD followed by Dr. Ye, hypertension, hyperlipidemia, CHF, end-stage renal disease on dialysis as well as prostate cancer with increasing shortness of breath, sputum production
growing MRSA and Citrobacter and now admitted with pneumonia-pulmonary consulted for pneumonia 12/19/2024.
Pneumonia-sputum growing Acetobacter and MRSA
COPD with mild acute exacerbation-chronic hypercapnia suspected with baseline PCO2 50-ABG 12/19/24--.43
Hyperglycemia
Thrombocytopenia
Conditions present prior to admission:
COPD/Asthma-oxygen dependent-follows Dr. Ye
Former [id number]-year
NEERAJ status post UP3 about 10 years ago-has been refusing additional workup since as ongoing NEERAJ suspected clinically
PAF.
Hypertension.
Hyperlipidemia.
Chronic kidney disease on hemodialysis.
Anemia.
Attention deficit.
Bipolar.
Insomnia.
Prostate cancer.
Anxiety
Gout.
Spine surgery. Hemorrhoid surgery. L4/L5, partial discectomy 1992. Left hand surgery as child. Tonsillectomy. 2006. Uvulopalatopharyngoplasty 1995. Fistula creation 05/2023
Plan
Respiratory decompensation in this patient with significant COPD/asthma overlap likely due to pneumonia-MRSA/ Acitobacter with mild COPD exacerbation.
Supplemental oxygen as needed-attempt to wean-assess discharge supplemental oxygen needs
ABG reviewed and summarized above-chronic hypercapnia and ongoing hypoxemia.
BiPAP if needed-suspect somnolence related to Xanax he received-easily arousable and oriented.
Symbicort continues.
Singulair continues
Nebulizers.
Aspiration precautions.
Mucus clearing devices.
Mucinex.
Chest x-ray 12/18/2024-blunting right costophrenic angle-personally reviewed chest x-rays 12/14/2024 and 10/24/2024-persistent and chronic since 10/20/2024 blunting at the right costophrenic angle, however new since 06/02/2023 chest x-rays.
CT chest 12/20/24-scattered subpleural nodular opacifications in the right lung measuring up to 1.6 cm, mild centrilobular emphysematous changes, mild bibasilar atelectasis and no pleural effusions or pneumothorax, right apical pleural calcifications
may be the sequelae of prior asbestos exposure
Check cultures.
Sputum culture in the outpatient setting noted-MRSA and the Citrobacter
Influenza negative
Blood cultures negative
MRSA screen pending
Vanco/cefepime initiated
Infectious disease consultation noted and correspondence reviewed-continue vancomycin and cefepime for now
Anxiolytics including Klonopin currently being adjusted by primary team-less somnolent on lower doses of Klonopin
Nephrology following-correspondence reviewed.
Hemodialysis Gzqxqv-Zwisexqiv-Zqkfah
DVT prophylaxis-on subcutaneous heparin
Nutrition
Increase activity
Outpatient follow-up with Dr. Ye-Currently has appointment with Melinda ZAMORA on 12/26/24 at 10:[address] Ye on 02/15/25 at 10:30 AM-will need CT follow-up to ensure clearing of nodular infiltrates
Diagnostic data:
Chest x-ray 10/12/2019-NAD
Chest x-ray 04/02/2022-bilateral interstitial type pneumonia
Chest x-ray 04/06/2022-progressed right lower lobe atelectasis
Chest x-ray 05/08/2022-small bilateral pleural effusions
Chest x-ray 06/02/2023-NAD
Chest x-ray 10/20/2024-small right pleural effusion, cannot entirely rule out mild right lower lobe pneumonia
Chest x-ray 12/14/2024-unchanged right basilar opacification consistent with small right pleural effusion
Echocardiogram 03/11/2023-EF 65-70%, no valvular disease
PFT 07/10/24-FEV1 1.3 L-39%, FVC 2.69 L-59%, TLC 62%, RV 58%, DLCO 50%, DLCO/VA 89%
Subjective Data
-
Date of Service:
Date of Service: December 21, 2024
Chief Complaint: Pulmonary Follow Up and Dyspnea Follow Up
Subjective:
Feels better, has minimal cough, no chest pain or abdominal pain
Review of Systems
General: Other ( per HPI)
Objective Data
Data Reviewed
Vital Signs / I&O:
Vital Signs
Temp Pulse Resp BP Pulse Ox
97.5 F 78 16 147/119 97
12/21/24 07:00 12/21/24 07:35 12/21/24 07:35 12/21/24 07:00 12/21/24 08:29
Intake and Output
12/20/24 12/21/24 12/22/24
06:59 06:59 06:59
Intake Total 840 / 840 1680 / 1680
Balance 840 / 840 1680 / 1680
SaO2: 97
Nasal Cannula flow liters per minute: 2
Physical Exam
General: Respiratory Distress (n) and Comfortable
HEENT: Normocephalic, Anicteric and Moist Mucous Membranes
Cardiovascular: Regular Rhythm
Respiratory: Wheeze (Forced expiratory), Crackles (Rare basilar), Rhonchi (Few expiratory), Non-Labored Respirations and Accessory Resp Muscle Use (n)
GI: Soft, Non Distended and Non Tender
Neurology: Awake, Alert and No Motor Deficits
Skin: Warm, Good Color, Cyanosis (n), Jaundice (n) and Rash (n)
Labs/Micro/Reports
Lab Data
12/21/24 06:24
12/21/24 06:24
Microbiology
12/19/24 10:04 Blood/Venous Blood Culture - Preliminary
No Growth in 48 hours- Final report to follow
12/19/24 10:04 Blood/Venous Blood Culture - Preliminary
No Growth in 48 hours- Final report to follow
12/19/24 08:53 Nose MRSA Screen - Final
Staph aureus MRSA
12/19/24 10:04 Nasal Swab Influenza Types A & B (DORA) - Final
Negative for Influenza A & B, NAAT
Negative results must be combined with clinical observations
and patient history.
Nucleic Acid Amplification test (NAAT)performed on the
[employer] platform.
--- NOTE | 2024-12-21 11:45 | W.PN.HOSP.TC ---
Today's Communication/Plan
-
Cont Abx pending further ID reccs
Assessment / Plan
Assessment / Plan
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 Was already treated for the same in 2023 in [facility]
A/P:
#Pneumonia with Acinetobacter and MRSA
ID consult: MRSA - Vanco, Acinetobacter sensitive to Cefepime - cont
COVID-19 and influenza neg
Pulm consult: XR with right basilar opacity, with a fluid meniscus sign at the lateral lung base, CT showed Scattered subpleural nodular opacities within the right lung measuring up to 1.6 cm in the lateral right middle lobe which may be
infectious/inflammatory in nature. A follow-up should be considered to ensure resolution
#ESRD on HD MWF
Nephro for HD
#Mild hyperkalemia
correct with HD as per discussion with nephro
#Chronic hyponatremia
#Bipolar d/o
#Asthma, not in exacerbation
#Gout
#Essential HTN
#HX of Afib not on AC
#MARK
cont home meds
#Thrombocytopenia
suspect 2/2 Abx, follow CBC
4T score low - cont hep but check HIT Ab
#minimal hypercalcemia
follow BMP
correct with HD
DVT ppx hep
Full code
I have spent at least 51min reviewing chart, test results, communication to consultants and providing direct patient care
Anticipated Discharge: > 48 hours
Subjective/Interval History
-
Date of Service: December 21, 2024
Objective Data
-
Labs:
Laboratory Results
12/21/24
06:24
WBC 7.1
Hgb 11.9 L
Hct 36.5 L
Plt Count 122 L
Sodium 131 L
Potassium 5.1
Chloride 93 L
Carbon Dioxide 30
BUN 36 H
Creatinine 6.0 H*
Glucose 81
Calcium 10.0
Total Bilirubin 0.9
AST 18
ALT 21
Alkaline Phosphatase 93
Vital Signs:
Vital Signs
Temp Pulse Resp BP Pulse Ox
97.5 F 77 16 147/119 98
12/21/24 07:00 12/21/24 11:42 12/21/24 11:42 12/21/24 07:00 12/21/24 11:42
I&O
12/20/24 12/21/24 12/22/24
06:59 06:59 06:59
Intake Total 840 / 840 1680 / 1680
Balance 840 / 840 1680 / 1680
Review of Systems
-
History Source: Patient
All other systems: Reviewed and negative
Physical Exam
-
General: No Apparent Distress
HEENT: Normocephalic
Respiratory: Clear to Auscultation
GI: Soft, Nontender and Nondistended
Skin: Warm
Neuro: Awake, Alert, Oriented and AO x 3
Psych: Calm
[2024-12-21] MEDS: HEPARIN 5000 UNITS SC ×2 (12:35→17:36)
[2024-12-21 15:00] VITALS: BP 160/84
--- NOTE | 2024-12-21 15:17 | W.PN.ID1 ---
Date of Service
Date of Service: December 21, 2024
Today's Communication
Continue abx.
Assessment / Plan
Exacerbation of COPD
Mucopurulent bronchitis
- Cultures with Acinetobacter calcoaceticus and MRSA
ESRD�HD
HTN
HLD
Depression
P A-fib
Anemia
Hx prostate send
Recommendations:
Continue with vancomycin (d#3) and cefepime (d#3) for present. Cefepime dosing has been adjusted for ESRD. Vancomycin dosing by levels.
Monitor sputum production.
Follow white count and temperature curve.
����������������������������������������������������������
Chief Complaint
-: Other (Bronchitis)
Subjective / Review of Systems
Review of Systems: No Fever
Vital Signs / Physical Exam
Vital Signs
Vital Signs
Temp Pulse Resp BP Pulse Ox
97.5 F 77 16 147/119 98
12/21/24 07:00 12/21/24 11:42 12/21/24 11:42 12/21/24 07:00 12/21/24 14:44
Physical Exam
Constitutional: No Acute Distress, Comfortable and Non-toxic
Cardiovascular: S1/S2; Negative S3/S4
Pulmonary: Wheezes and Non Labored; Negative Rales or Rhonchi
Gastrointestinal: Soft, Non Tender and Non Distended
Extremities: Edema; Negative Erythema
Skin: Negative Rash or Jaundice
Psychological: Calm
Objective Data
Lab Data
Lab Results
12/21/24 06:24
12/21/24 06:24
Estimated Creat Clear 13 ml/min 12/21/24 06:24
Total Bilirubin 0.9 mg/dl (0.2-1.3) 12/21/24 06:24
AST 18 U/L (17-59) 12/21/24 06:24
ALT 21 U/L (0-50) 12/21/24 06:24
Alkaline Phosphatase 93 U/L (38-126) 12/21/24 06:24
Most recent labs reviewed.
Micro Results:
12/19/24 10:04 Blood Culture - Preliminary
Blood/Venous No Growth in 48 hours- Final report to follow
12/19/24 10:04 Blood Culture - Preliminary
Blood/Venous No Growth in 48 hours- Final report to follow
12/19/24 08:53 MRSA Screen - Final
Nose Staph aureus MRSA
12/19/24 10:04 Influenza Types A & B (DORA) - Final
Nasal Swab Negative for Influenza A & B, NAAT
Negative results must be combined with clinical observations
and patient history.
Nucleic Acid Amplification test (NAAT)performed on the
[employer] platform.
-- 12/07/2024 Sputum Culture --
Imaging:
12/20/2024 CT chest without contrast: scattered subpleural nodular opacities within the right lung measuring up to 1.6 cm in the lateral right middle lobe, which may be infectious or inflammatory in nature. Mild centrilobular emphysematous changes
with mild bibasilar atelectasis. No pleural effusion. No pneumothorax. Please see full dictation for additional detail.
12/18/2024 CXR (2 view): right pleural effusion noted. No significant infiltrates appreciated. (Film personally viewed.)
[2024-12-21] MEDS: THERAGRAN 1 TABLET PO (17:39)
[2024-12-21] MEDS: VITAMIN D3 (cholecalciferol) 50 MCG PO (17:39)
[2024-12-21] MEDS: OSCAL CAL 500 500 MG PO (17:40)
[2024-12-21] MEDS: SEROQUEL 400 MG PO (21:58)
[2024-12-21 22:03] VITALS: BP 160/84
[2024-12-22] MEDS: HEPARIN 5000 UNITS SC ×4 (01:30→23:03)
[2024-12-22] MEDS: STERILE WATER FOR INJECTION 10 ML IV (01:30)
[2024-12-22] MEDS: MAXIPIME 1000 MG IV (01:31)
[2024-12-22 07:08] VITALS: BP 148/71
[2024-12-22] MEDS: SYMBICORT 80/4.5 MCG INHALER 2 PUFF INH ×2 (07:18→19:42)
[2024-12-22] MEDS: DUONEB 3 ML INH ×4 (07:18→19:42)
[2024-12-22] MEDS: LAMICTAL 200 MG PO (07:52)
[2024-12-22] MEDS: COREG 6.25 MG PO ×2 (07:52→21:02)
[2024-12-22] MEDS: RENVELA 2400 MG PO ×2 (07:52→13:20)
[2024-12-22] MEDS: ZYLOPRIM 100 MG PO (07:53)
[2024-12-22] MEDS: DITROPAN 5 MG PO ×2 (07:53→20:56)
[2024-12-22] MEDS: SINGULAIR 10 MG PO (07:53)
[2024-12-22] MEDS: LASIX 20 MG PO ×2 (07:53→21:02)
[2024-12-22] MEDS: MUCINEX 1200 MG PO ×2 (07:54→20:56)
[2024-12-22] MEDS: FEOSOL 325 MG PO (07:54)
[2024-12-22] MEDS: MAGNESIUM OXIDE 400 MG PO (07:54)
[2024-12-22] MEDS: MIRALAX 17 GRAMS PO (07:54)
[2024-12-22] MEDS: NON-FORMULARY ITEM 5 MG PO (07:54)
[2024-12-22 10:25] LABS: Hematocrit 36.4 % (39.0-52.0); Hemoglobin 12.1 g/dL (13.0-18.0)
--- NOTE | 2024-12-22 10:30 | W.PN.HOSP.TC ---
Today's Communication/Plan
-
cont ABx
Assessment / Plan
Assessment / Plan
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 Was already treated for the same in 2023 in [facility]
A/P:
#Pneumonia with Acinetobacter and MRSA
ID consult: MRSA - Vanco, Acinetobacter sensitive to Cefepime - cont
COVID-19 and influenza neg
Pulm consult: XR with right basilar opacity, with a fluid meniscus sign at the lateral lung base, CT showed Scattered subpleural nodular opacities within the right lung measuring up to 1.6 cm in the lateral right middle lobe which may be
infectious/inflammatory in nature. A follow-up should be considered to ensure resolution
#ESRD on HD MWF
Nephro for HD
#Mild hyperkalemia
correct with HD as per discussion with nephro
#Chronic hyponatremia
#Bipolar d/o
#Asthma, not in exacerbation
#Gout
#Essential HTN
#HX of Afib not on AC
#MARK
cont home meds
#Thrombocytopenia
suspect 2/2 Abx, follow CBC
4T score low - cont hep but check HIT Ab
#minimal hypercalcemia
follow BMP
correct with HD
DVT ppx hep
Full code
I have spent at least 51min reviewing chart, test results, communication to consultants and providing direct patient care
Anticipated Discharge: Within 24 hours
Subjective/Interval History
-
Date of Service: December 22, 2024
Objective Data
-
Labs:
Laboratory Results
12/22/24
10:17
Hgb 12.1 L
Hct 36.4 L
Sodium Pending
Potassium Pending
Chloride Pending
Carbon Dioxide Pending
BUN Pending
Creatinine Pending
Glucose Pending
Calcium Pending
Vital Signs:
Vital Signs
Temp Pulse Resp BP Pulse Ox
97.7 F 65 16 148/71 98
12/22/24 07:08 12/22/24 07:52 12/22/24 07:22 12/22/24 07:52 12/22/24 07:22
I&O
12/21/24 12/22/24 12/23/24
06:59 06:59 06:59
Intake Total 1680 / 1680 1130 / 1130
Balance 1680 / 1680 1130 / 1130
Review of Systems
-
History Source: Patient
All other systems: Reviewed and negative
Physical Exam
-
General: No Apparent Distress
HEENT: Normocephalic
Neuro: Awake, Alert, Oriented and AO x 3
Psych: Calm
--- NOTE | 2024-12-22 10:33 | W.PN.PUL.V3 ---
Today's Communication / Plan
-
Continues to improve.
Transition to oral antibiotics.
Stable for discharge from a pulmonary perspective-pulmonary will sign off-call with questions
Assessment
-
69-year-old former smoking male with underlying oxygen dependent COPD followed by Dr. Ye, hypertension, hyperlipidemia, CHF, end-stage renal disease on dialysis as well as prostate cancer with increasing shortness of breath, sputum production
growing MRSA and Citrobacter and now admitted with pneumonia-pulmonary consulted for pneumonia 12/19/2024.
Pneumonia-sputum growing Acetobacter and MRSA
COPD with mild acute exacerbation-chronic hypercapnia suspected with baseline PCO2 50-ABG 12/19/24--7.43
Hyperglycemia
Thrombocytopenia
Conditions present prior to admission:
COPD/Asthma-oxygen dependent-follows Dr. Ye
Former [id number]-year
NEERAJ status post UP3 about 10 years ago-has been refusing additional workup since as ongoing NEERAJ suspected clinically
PAF.
Hypertension.
Hyperlipidemia.
Chronic kidney disease on hemodialysis.
Anemia.
Attention deficit.
Bipolar.
Insomnia.
Prostate cancer.
Anxiety
Gout.
Spine surgery. Hemorrhoid surgery. L4/L5, partial discectomy 1992. Left hand surgery as child. Tonsillectomy. 2006. Uvulopalatopharyngoplasty 1995. Fistula creation 05/2023
Plan
Respiratory decompensation in this patient with significant COPD/asthma overlap likely due to pneumonia-MRSA/ Acitobacter with mild COPD exacerbation.
Supplemental oxygen as needed-attempt to wean-assess discharge supplemental oxygen needs
ABG reviewed and summarized above-chronic hypercapnia and ongoing hypoxemia.
BiPAP if needed-suspect somnolence related to Xanax he received-easily arousable and oriented.
Symbicort continues.
Singulair continues
Nebulizers.
Aspiration precautions.
Mucus clearing devices.
Mucinex.
Chest x-ray 12/18/2024-blunting right costophrenic angle-personally reviewed chest x-rays 12/14/2024 and 10/24/2024-persistent and chronic since 10/20/2024 blunting at the right costophrenic angle, however new since 06/02/2023 chest x-rays.
CT chest 12/20/24-scattered subpleural nodular opacifications in the right lung measuring up to 1.6 cm, mild centrilobular emphysematous changes, mild bibasilar atelectasis and no pleural effusions or pneumothorax, right apical pleural calcifications
may be the sequelae of prior asbestos exposure
Cultures reviewed
Sputum culture in the outpatient setting noted-MRSA and the Citrobacter
Influenza negative
Blood cultures negative
MRSA screen , negative
Vanco/cefepime initiated-changed to Cipro and doxycycline oral
Infectious disease consultation noted and correspondence reviewed-continue vancomycin and cefepime for now
Anxiolytics including Klonopin currently being adjusted by primary team-less somnolent on lower doses of Klonopin
Nephrology following-correspondence reviewed.
Hemodialysis [facility]
DVT prophylaxis-on subcutaneous heparin
Nutrition
Increase activity
Stable for discharge from a pulmonary perspective-complete Cipro/doxycycline with radiographic follow-up and pulmonary [id number] will sign off
Outpatient follow-up with Dr. Ye-Currently has appointment with Melinda ZAMORA on 12/26/24 at 10:[address] Ye on 02/15/25 at 10:30 AM-will need CT follow-up to ensure clearing of nodular infiltrates
Diagnostic data:
Chest x-ray 10/12/2019-NAD
Chest x-ray 04/02/2022-bilateral interstitial type pneumonia
Chest x-ray 04/06/2022-progressed right lower lobe atelectasis
Chest x-ray 05/08/2022-small bilateral pleural effusions
Chest x-ray 06/02/2023-NAD
Chest x-ray 10/20/2024-small right pleural effusion, cannot entirely rule out mild right lower lobe pneumonia
Chest x-ray 12/14/2024-unchanged right basilar opacification consistent with small right pleural effusion
Echocardiogram 03/11/2023-EF 65-70%, no valvular disease
PFT 07/10/24-FEV1 1.3 L-39%, FVC 2.69 L-59%, TLC 62%, RV 58%, DLCO 50%, DLCO/VA 89%
Subjective Data
-
Date of Service:
Date of Service: December 22, 2024
Chief Complaint: Pulmonary Follow Up and Dyspnea Follow Up
Subjective:
Feels better, minimal cough, 'slept all day yesterday', no chest pain, productive cough, or abdominal pain
Review of Systems
General: Other ( per HPI)
Objective Data
Data Reviewed
Vital Signs / I&O:
Vital Signs
Temp Pulse Resp BP Pulse Ox
97.7 F 65 16 148/71 98
12/22/24 07:08 12/22/24 07:52 12/22/24 07:22 12/22/24 07:52 12/22/24 07:22
Intake and Output
12/21/24 12/22/24 12/23/24
06:59 06:59 06:59
Intake Total 1680 / 1680 1130 / 1130
Balance 1680 / 1680 1130 / 1130
SaO2: 98
Nasal Cannula flow liters per minute: 2
Physical Exam
General: Respiratory Distress (n) and Comfortable
HEENT: Normocephalic, Anicteric and Moist Mucous Membranes
Cardiovascular: Regular Rhythm
Respiratory: Wheeze (Forced expiratory), Crackles (Rare basilar), Rhonchi (Few expiratory), Non-Labored Respirations and Accessory Resp Muscle Use (n)
GI: Soft, Non Distended and Non Tender
Neurology: Awake, Alert and No Motor Deficits
Skin: Warm, Good Color, Cyanosis (n), Jaundice (n) and Rash (n)
Labs/Micro/Reports
Lab Data
12/22/24 10:17
Microbiology
12/19/24 10:04 Blood/Venous Blood Culture - Preliminary
No Growth in 72 hours- Final report to follow
12/19/24 10:04 Blood/Venous Blood Culture - Preliminary
No Growth in 72 hours- Final report to follow
12/19/24 08:53 Nose MRSA Screen - Final
Staph aureus MRSA
12/19/24 10:04 Nasal Swab Influenza Types A & B (DORA) - Final
Negative for Influenza A & B, NAAT
Negative results must be combined with clinical observations
and patient history.
Nucleic Acid Amplification test (NAAT)performed on the
[employer] platform.
[2024-12-22 10:52] LABS: Blood Urea Nitrogen 57 mg/dl (9-20); Calcium 10.6 mg/dl (8.4-10.2); Carbon Dioxide 31 mmol/L (22-30); Chloride 89 mmol/L (98-107); Estimated Creatinine Clearance 9 ml/min; Glucose 91 mg/dl (70-99); Potassium 4.7 mmol/L (3.5-5.1); Sodium 130 mmol/L (135-145); eGFR 6.48
--- NOTE | 2024-12-22 11:44 | W.PN.ID1 ---
Date of Service
Date of Service: December 22, 2024
Today's Communication
Transition to oral ciprofloxacin and doxycycline.
Assessment / Plan
Exacerbation of COPD
Mucopurulent bronchitis
- Cultures with Acinetobacter calcoaceticus and MRSA
ESRD�HD
HTN
HLD
Depression
P A-fib
Anemia
Hx prostate send
Recommendations:
Currently vancomycin (d#4) and cefepime (d#4) with clinical improvement.
Transition to doxycycline 100 mg p.o. BID and ciprofloxacin 500 mg q.24 hours (after HD) to complete 4 more days of therapy.
Little more to offer from a Infectious Diseases standpoint.
Will see again at your request.
����������������������������������������������������������
Chief Complaint
-: Other (Bronchitis)
Subjective / Review of Systems
Review of Systems: No Fever, No Chills, Cough and No Sputum Production
Vital Signs / Physical Exam
Vital Signs
Vital Signs
Temp Pulse Resp BP Pulse Ox
97.7 F 71 16 148/71 99
12/22/24 07:08 12/22/24 11:20 12/22/24 11:20 12/22/24 07:52 12/22/24 11:20
Physical Exam
Constitutional: No Acute Distress, Comfortable and Non-toxic
Cardiovascular: S1/S2; Negative S3/S4
Pulmonary: Wheezes and Non Labored; Negative Rales or Rhonchi
Gastrointestinal: Soft, Non Tender and Non Distended
Extremities: Edema; Negative Erythema
Skin: Negative Rash or Jaundice
Psychological: Calm
Objective Data
Lab Data
Lab Results
12/22/24 10:17
12/22/24 10:17
Estimated Creat Clear 9 ml/min 12/22/24 10:17
Total Bilirubin 0.9 mg/dl (0.2-1.3) 12/21/24 06:24
AST 18 U/L (17-59) 12/21/24 06:24
ALT 21 U/L (0-50) 12/21/24 06:24
Alkaline Phosphatase 93 U/L (38-126) 12/21/24 06:24
Most recent labs reviewed.
Micro Results:
12/19/24 10:04 Blood Culture - Preliminary
Blood/Venous No Growth in 72 hours- Final report to follow
12/19/24 10:04 Blood Culture - Preliminary
Blood/Venous No Growth in 72 hours- Final report to follow
12/19/24 08:53 MRSA Screen - Final
Nose Staph aureus MRSA
12/19/24 10:04 Influenza Types A & B (DORA) - Final
Nasal Swab Negative for Influenza A & B, NAAT
Negative results must be combined with clinical observations
and patient history.
Nucleic Acid Amplification test (NAAT)performed on the
[employer] platform.
-- 12/07/2024 Sputum Culture --
Imaging:
12/20/2024 CT chest without contrast: scattered subpleural nodular opacities within the right lung measuring up to 1.6 cm in the lateral right middle lobe, which may be infectious or inflammatory in nature. Mild centrilobular emphysematous changes
with mild bibasilar atelectasis. No pleural effusion. No pneumothorax. Please see full dictation for additional detail.
12/18/2024 CXR (2 view): right pleural effusion noted. No significant infiltrates appreciated. (Film personally viewed.)
Care Review
Plan reviewed with: Physician (Hospitalist, Pulmonary)
--- NOTE | 2024-12-22 12:04 | W.PN.NEPH.PH ---
Today's Communication / Plan
-
Dialysis today
Assessment/Plan
-
69-year-old male with past medical history significant for COPD on 3 to 4 L home O2, hypertension, hyperlipidemia, CHF with preserved EF, ESRD on HD Wednesday,, history of prostate cancer presenting to the emergency department with
ongoing cough and sent in by is management development specialist for positive growth on sputum culture with MRSA and Acetobacter.
Patient reported that he had a prior episode of productive cough that developed into pneumonia with MRSA and Acinetobacter last year
Renal consult for end-stage renal disease
Dialysis Wednesday at [facility] follows with Dr. Mas. He has been on dialysis since March 2024 he has an AV fistula placed by Dr. Prieto
Impression
ESRD
Pneumonia/bronchitis/MRSA in sputum
COPD stable
CHF stable
Secondary hyperparathyroidism
Hyperphosphatemia
Plan.
Orders provide
Epogen as indicated for hemoglobin goal between 10 and 11
Sevelamer continue for hyperphosphatemia
Antibiotics per primary team renal dose for ESRD (vanco/cefipime)
Dialysis today
-
-
Date of Service: December 22, 2024
CC / HPI / ROS
-
Chief Complaint:
ESRD
History of Present Illness:
Hemodynamically stable dry weight and on current antihypertensive
ESRD on Wednesday
Remains on antibiotic therapy for MRSA sputum and bronchitis
Review of Systems:
No shortness of breath
No chest pain
No fever
Labs
-
Labs:
WBC 7.1 10^3/uL (4.8-10.8) 12/21/24 06:24
RBC 3.81 10^6/uL (4.70-6.10) L 12/21/24 06:24
Hgb 12.1 g/dL (13.0-18.0) L 12/22/24 10:17
Hct 36.4 % (39.0-52.0) L 12/22/24 10:17
Plt Count 122 10^3/uL (130-400) L 12/21/24 06:24
Sodium 130 mmol/L (135-145) L 12/22/24 10:17
Potassium 4.7 mmol/L (3.5-5.1) 12/22/24 10:17
Chloride 89 mmol/L (98-107) L 12/22/24 10:17
Carbon Dioxide 31 mmol/L (22-30) H 12/22/24 10:17
BUN 57 mg/dl (9-20) H 12/22/24 10:17
Creatinine 8.2 mg/dL (0.7-1.3) H* 12/22/24 10:17
eGFR 6.48 12/22/24 10:17
Glucose 91 mg/dl (70-99) 12/22/24 10:17
Calcium 10.6 mg/dl (8.4-10.2) H 12/22/24 10:17
Albumin 4.5 g/dl (3.5-5.0) 12/21/24 06:24
Physical Exam
-
Vital Signs:
Vital Signs
Temp Pulse Resp BP Pulse Ox
97.7 F 71 16 148/71 99
12/22/24 07:08 12/22/24 11:20 12/22/24 11:20 12/22/24 07:52 12/22/24 11:20
Respiratory:: Bilateral: CTA
Lung Excursion:: Normal
Abdomen:: Soft
Bowel Sounds:: None
Extremity Edema:: None: Bilateral:
Other Findings::
Does not appear acutely ill on exam
Vital signs reviewed with slight hypertension
No conversational dyspnea
No tremors
No edema
--- NOTE | 2024-12-22 14:10 | CM ---
Addendum entered by Yaw Nails 12/22/24 16:21:
IMM reviewed, placed on chart, pt has a copy
Original Note:
CM following re: discharge planning.
Reviewed pt's chart, met with pt.
Pert chart review, HD today, ID, pulmonology following, continue supportive care.
Pt lives with spouse in multistory home but stay on the one level side, no steps. .
Independent in ADLs, personal care and ambulation at baseline, no assistive devices. Wears home O2 3-4L supplied by [employer].
Gets hemodialysis MWF at [facility], (phone: [phone]; ), uses [facility].
PT and OT will evaluate the pt to determine a level of care at discharge.
D/C plan: most likely return back home with resumptions of HD treatment at [facility] and family support.
CM will follow with discharge plan updates as hospitalization progresses
[2024-12-22 15:22] VITALS: BP 162/86
[2024-12-22 16:22] VITALS: BP 162/86
[2024-12-22] MEDS: HEPARIN 500 UNITS IV ×2 (17:00→18:00)
[2024-12-22] MEDS: RENVELA PO (17:42)
[2024-12-22] MEDS: ZYLOPRIM PO (17:42)
[2024-12-22] MEDS: THERAGRAN PO (17:43)
[2024-12-22] MEDS: OSCAL CAL 500 PO (17:43)
[2024-12-22] MEDS: VITAMIN D3 (cholecalciferol) PO (17:43)
[2024-12-22] MEDS: CIPRO 250 MG PO (20:56)
[2024-12-22] MEDS: VIBRAMYCIN 100 MG PO (20:56)
[2024-12-22] MEDS: SEROQUEL PO (21:03)
[2024-12-22] MEDS: SEROQUEL 400 MG PO (22:39)
[2024-12-22 23:08] VITALS: BP 134/70
[2024-12-22] MEDS: STERILE WATER FOR INJECTION IV (23:14)
[2024-12-23] MEDS: KLONOPIN 1 MG PO (01:31)
[2024-12-23 05:12] VITALS: BMI 29.8
[2024-12-23 07:00] VITALS: BP 85/53
[2024-12-23] MEDS: DUONEB 3 ML INH (07:30)
[2024-12-23] MEDS: SYMBICORT 80/4.5 MCG INHALER 2 PUFF INH (07:31)
--- NOTE | 2024-12-23 07:41 | W.PN.HOSP.TC ---
Today's Communication/Plan
-
dc
Assessment / Plan
Assessment / Plan
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 Was already treated for the same in 2023 in [facility]. Started on Cefepime
and Vanco as per ID switched to Ciprofloxacin and Doxycycline on 12/22/24 to complete 7 more days of therapy. Since HD completed late in the evening - could not leave the hospital same day. Cough improved. Patient was counseled to avoid direct
sunlight, calcium and multivitamin supplements, exercising and sudden movements due to side effects of Abx for the duration of the therapy. He verbalized understanding of the instructions. Has HD seat at 9:00am on 12/25/24. Medically stable for d/c
A/P:
#Pneumonia with Acinetobacter and MRSA
ID consult: Cipro/Doxy x7 dys
COVID-19 and influenza neg
Pulm consult: XR with right basilar opacity, with a fluid meniscus sign at the lateral lung base, CT showed Scattered subpleural nodular opacities within the right lung measuring up to 1.6 cm in the lateral right middle lobe which may be
infectious/inflammatory in nature. A follow-up should be considered to ensure resolution
#ESRD on HD MWF
Nephro for HD
#Mild hyperkalemia
correct with HD as per discussion with nephro
#Chronic hyponatremia
#Bipolar d/o
#Asthma, not in exacerbation
#Gout
#Essential HTN
#HX of Afib not on AC
#MARK
cont home meds
#Thrombocytopenia
suspect 2/2 Abx, follow CBC
4T score low - cont hep but check HIT Ab
#minimal hypercalcemia
follow BMP
correct with HD
DVT ppx hep
Full code
I have spent at least 36min reviewing chart, test results, communication to consultants and providing direct patient care
Anticipated Discharge: Today
Subjective/Interval History
-
Date of Service: December 23, 2024
Objective Data
-
Vital Signs:
Vital Signs
Temp Pulse Resp BP Pulse Ox
98.0 F 87 18 134/70 100
12/22/24 23:08 12/22/24 23:08 12/22/24 23:08 12/22/24 23:08 12/22/24 23:08
I&O
12/22/24 12/23/24 12/24/24
06:59 06:59 06:59
Intake Total 1130 / 1130 1020 / 1020
Balance 1130 / 1130 1020 / 1020
Review of Systems
-
History Source: Patient
All other systems: Reviewed and negative
Physical Exam
-
General: Well Nourished
HEENT: Normocephalic
Respiratory: Clear to Auscultation
Cardiac: Regular Rhythm
Neuro: Awake, Alert, Oriented and AO x 3
Psych: Calm
--- NOTE | 2024-12-23 07:51 | W.DCSUMMARY ---
Addendum entered and electronically signed by Brody Zelaya MD 12/23/24 11:11:
Correction: 2L
Addendum entered and electronically signed by Brody Zelaya MD 12/23/24 11:11:
#Chronic hypoxic failure on 4L home O2
Original Note:
Discharge Summary
Discharge Data
Date of Admission: 12/19/24
Date of Discharge: 12/23/24
-
Pending Results: No
Hospital Course
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 Was already treated for the same in 2023 in [facility]. Started on Cefepime
and Vanco as per ID switched to Ciprofloxacin and Doxycycline on 12/22/24 to complete 7 more days of therapy. Since HD completed late in the evening - could not leave the hospital same day. Cough improved. Patient was counseled to avoid direct
sunlight, calcium and multivitamin supplements, exercising and sudden movements due to side effects of Abx for the duration of the therapy. He verbalized understanding of the instructions. Has HD seat at 9:00am on 12/25/24. HIT Ab neg - repeat CBC in
1-2 weeks. Medically stable for d/c
I have spent at least 36min reviewing chart, test results, communication to consultants and providing direct patient care
Patient was managed for:
#CAP with Acinetobacter and MRSA
#ESRD on HD MWF
#Mild hyperkalemia
#Chronic hyponatremia
#Bipolar d/o
#Asthma, not in exacerbation
#Gout
#Essential HTN
#HX of Afib not on AC
#MARK
#Thrombocytopenia
#minimal hypercalcemia
Discharge Plan
-
Patient Disposition: Home (Routine Discharge)
Discharge Diagnosis/Procedures: CAP
Diet: Other diet
Additional Diets: Renal
Activity: As tolerated
Blood Work: Repeat CBC in 1-2 weeks with family doctor due to thrombocytopenia
Referrals:
Alea Rosales PA [Family Provider, Family Practice]
Melinda Forrest CRNP [Non-Admitting Privileges, Pulmonary Medicine]
Referral Note: as scheduled. 12/26/24
Prescriptions:
New
doxycycline hyclate 100 mg Capsule
100 mg PO BID Qty: 11 0RF
ciprofloxacin HCl 250 mg Tablet
250 mg PO Q24H Qty: 6 0RF
Continued
lamotrigine 200 mg tablet
200 mg PO DAILY
albuterol sulfate 90 mcg/actuation HFA aerosol inhaler
1 puff INHALATION R Q4HPRN PRN (Reason: sob)
carvedilol 12.5 mg Tablet
6.25 mg PO BID
allopurinol 100 mg Tablet
100 mg PO BID
oxybutynin chloride 10 mg Tablet Extended Release 24hr
10 mg PO DAILY
therapeutic multivitamin Tablet
1 tab PO QPM
calcium carbonate 500 mg calcium (1,250 mg) Tablet
500 mg PO QPM
ferrous sulfate 325 mg (65 mg iron) Tablet
325 mg PO DAILY
cholecalciferol (vitamin D3) [Vitamin D3] 50 mcg (2,000 unit) Tablet
50 mcg PO QPM
metolazone 2.5 mg Tablet
2.5 mg PO DAILYPRN PRN (Reason: edema)
atomoxetine 80 mg Capsule
80 mg PO DAILY Qty: 0 0RF
quetiapine 200 mg Tablet
400 mg PO HS
montelukast [Singulair] 10 mg Tablet
10 mg PO DAILY
furosemide [Lasix] 20 mg Tablet
20 mg PO BID
tadalafil 5 mg Tablet
5 mg PO DAILY
Trelegy Ellipta 100-62.5-25 mcg Blister With Device
1 inh INHALATION R DAILY
sevelamer HCl 800 mg Tablet
2,400 mg PO AC
Velphoro 500 mg Tablet,Chewable
1,000 mg PO PC
magnesium oxide 400 mg magnesium Capsule
400 mg PO DAILY
Wegovy 0.25 mg/0.5 mL Pen Injector
0.25 mg SC FR
quetiapine [Seroquel] 25 mg Tablet
25 mg PO Q6HPRN PRN (Reason: agition)
Changed
clonazepam 2 mg Tablet
1 mg PO HSPRN PRN (Reason: anxiety) Qty: 0 0RF
Discharge Orders:
Discharge Patient (As Directed); Ordered 12/23/24
Ordered By: Brody Zelaya
Discharge Date and Time
Print Language: [place]
[2024-12-23 08:18] VITALS: BP 100/61
[2024-12-23] MEDS: HEPARIN SC (08:19)
[2024-12-23] MEDS: COREG PO (08:19)
[2024-12-23] MEDS: LASIX PO (08:20)
[2024-12-23] MEDS: MAGNESIUM OXIDE PO (08:20)
[2024-12-23] MEDS: ZYLOPRIM 100 MG PO (08:23)
[2024-12-23] MEDS: MIRALAX 17 GRAMS PO (08:23)
[2024-12-23] MEDS: LAMICTAL 200 MG PO (08:24)
[2024-12-23] MEDS: VIBRAMYCIN 100 MG PO (08:24)
[2024-12-23] MEDS: MUCINEX 1200 MG PO (08:24)
[2024-12-23] MEDS: DITROPAN 5 MG PO (08:24)
[2024-12-23] MEDS: SINGULAIR 10 MG PO (08:24)
[2024-12-23] MEDS: RENVELA 2400 MG PO (08:24)
[2024-12-23] MEDS: FEOSOL 325 MG PO (08:25)
[2024-12-23] MEDS: NON-FORMULARY ITEM 5 MG PO (08:26)
--- NOTE | 2024-12-23 11:23 | W.PN.NEPH.PH ---
Today's Communication / Plan
-
Outpatient dialysis
Assessment/Plan
-
69-year-old male with past medical history significant for COPD on 3 to 4 L home O2, hypertension, hyperlipidemia, CHF with preserved EF, ESRD on HD Wednesday,, history of prostate cancer presenting to the emergency department with
ongoing cough and sent in by is summer nanny for positive growth on sputum culture with MRSA and Acetobacter.
Patient reported that he had a prior episode of productive cough that developed into pneumonia with MRSA and Acinetobacter last year
Renal consult for end-stage renal disease
Dialysis Wednesday at [facility] follows with Dr. Mas. He has been on dialysis since March 2024 he has an AV fistula placed by Dr. Prieto
Impression
ESRD
Pneumonia/bronchitis/MRSA in sputum
COPD stable
CHF stable
Secondary hyperparathyroidism
Hyperphosphatemia
Plan.
Orders provide
Epogen as indicated for hemoglobin goal between 10 and 11
Sevelamer continue for hyperphosphatemia
Antibiotics per primary team renal dose for ESRD (vanco/cefipime)
Continue dialysis MWF
No acute need for dialysis today
-
-
Date of Service: December 23, 2024
CC / HPI / ROS
-
Chief Complaint:
ESRD
History of Present Illness:
Hemodynamically stable dry weight and on current antihypertensive
ESRD on Wednesday
Remains on antibiotic therapy for MRSA sputum and bronchitis
Review of Systems:
No shortness of breath
No chest pain
No fever
Labs
-
Labs:
WBC 7.1 10^3/uL (4.8-10.8) 12/21/24 06:24
RBC 3.81 10^6/uL (4.70-6.10) L 12/21/24 06:24
Hgb 12.1 g/dL (13.0-18.0) L 12/22/24 10:17
Hct 36.4 % (39.0-52.0) L 12/22/24 10:17
Plt Count 122 10^3/uL (130-400) L 12/21/24 06:24
Sodium 130 mmol/L (135-145) L 12/22/24 10:17
Potassium 4.7 mmol/L (3.5-5.1) 12/22/24 10:17
Chloride 89 mmol/L (98-107) L 12/22/24 10:17
Carbon Dioxide 31 mmol/L (22-30) H 12/22/24 10:17
BUN 57 mg/dl (9-20) H 12/22/24 10:17
Creatinine 8.2 mg/dL (0.7-1.3) H* 12/22/24 10:17
eGFR 6.48 12/22/24 10:17
Glucose 91 mg/dl (70-99) 12/22/24 10:17
Calcium 10.6 mg/dl (8.4-10.2) H 12/22/24 10:17
Albumin 4.5 g/dl (3.5-5.0) 12/21/24 06:24
Physical Exam
-
Vital Signs:
Vital Signs
Temp Pulse Resp BP Pulse Ox
98.0 F 70 16 100/61 99
12/23/24 07:00 12/23/24 07:30 12/23/24 07:30 12/23/24 08:18 12/23/24 08:29
Respiratory:: Bilateral: CTA
Lung Excursion:: Normal
Abdomen:: Soft
Bowel Sounds:: None
Extremity Edema:: None: Bilateral:
Other Findings::
Does not appear acutely ill on exam
Vital signs reviewed with slight hypertension
No conversational dyspnea
No tremors
No edema
[2024-12-23] MEDS: DUONEB INH (11:57)
== END 2024-12-23 12:12 | disposition home or self-care (01) | DRG 177 ==
LOC: 2 NORTH 02:06
PROVIDERS: Specialist; Student in an Organized Health Care Education/Training Program; ADMITTING PHYSICIAN Internal Medicine; ATTENDING PHYSICIAN Internal Medicine; CONSULT PHYSICIAN Internal Medicine Critical Care Medicine; CONSULT PHYSICIAN Internal Medicine Infectious Disease; CONSULT PHYSICIAN Internal Medicine Nephrology; EMERGENCY PHYSICIAN Emergency Medicine; FAMILY PHYSICIAN Physician Assistant
PROC: 5A1D70Z Performance of Urinary Filtration, Intermittent, Less than 6 Hours Per Day (ICD-10-PCS; 2024-12-20)
DX: J15.212 Pneumonia due to Methicillin resistant Staphylococcus aureus (principal); N18.6 End stage renal disease; J44.0 Chronic obstructive pulmonary disease with (acute) lower respiratory infection; E87.1 Hypo-osmolality and hyponatremia; I13.2 Hypertensive heart and chronic kidney disease with heart failure and with stage 5 chronic kidney disease, or end stage renal disease; I50.32 Chronic diastolic (congestive) heart failure; N25.81 Secondary hyperparathyroidism of renal origin; J96.11 Chronic respiratory failure with hypoxia; J15.61 Pneumonia due to Acinetobacter baumannii; E83.52 Hypercalcemia; D63.8 Anemia in other chronic diseases classified elsewhere; E87.5 Hyperkalemia; F31.9 Bipolar disorder, unspecified; M10.9 Gout, unspecified; G47.00 Insomnia, unspecified; I48.0 Paroxysmal atrial fibrillation; F41.9 Anxiety disorder, unspecified; F98.8 Other specified behavioral and emotional disorders with onset usually occurring in childhood and adolescence; D69.6 Thrombocytopenia, unspecified; R73.9 Hyperglycemia, unspecified; E78.5 Hyperlipidemia, unspecified; E83.39 Other disorders of phosphorus metabolism; Z11.52 Encounter for screening for COVID-19; Z79.899 Other long term (current) drug therapy; Z87.891 Personal history of nicotine dependence; Z99.81 Dependence on supplemental oxygen; Z85.46 Personal history of malignant neoplasm of prostate; Z99.2 Dependence on renal dialysis
CPT/HCPCS: 71046; 71250; 80048; 80053; 80202; 82607; 82746; 82805; 85014; 85018; 85025; 86022; 87040; 87070; 87147; 87502; 87811; 93005; 94640; G0257